=== PATIENT | female | born 1950 | race Caucasian/White ===

== ENCOUNTER 2017-02-06 19:38 | Inpatient (IN) | payer OTHER, MEDICARE ==
[2017-02-06 19:42] VITALS: BMI 25.9
--- NOTE | 2017-02-06 19:46 | PDOC ---
History of Present Illness - History of Present Illness Initial Comments: 02/06/17 19:59 The patient is a 66 year old female, who presents to the emergency department with nausea and vomiting since last night. Patient states that she has been vomiting since night, every 20 minutes. She states she is is unable to tolerate any foods or liquids. Every time she would eat or drink, she would throw it up. She describes her vomit as bilious. She was. however, able to have a bowel movement yesterday and today. She also complains of associated headache as well as being dehydrated. She was seen at [facility] around 1 year ago for a small bowel obstruction. She denies recent fevers, chills, or dizziness. She denies recent diarrhea or constipation. She denies recent dysuria, frequency, urgency or hematuria. She denies recent chest pain or shortness of breath. PAST MEDICAL HISTORY: SVT, cardiac ablation, type II diabetes, PAST SURGICAL HISTORY: splenectomy FAMILY HISTORY: no pertinent history SOCIAL HISTORY: former smoker MEDICATIONS: reviewed ALLERGIES: As per nursing notes ROS General: No fevers or chills, no weakness, no weight loss HEENT: No change in vision. No sore throat, No ear pain CardioVascular: No chest pain or shortness of breath Respiratory:No cough, or wheezing. Gastrointestinal:+ nausea +vomiting ,no diarrhea or constipation, No rectal bleeding Genitourinary: No dysuria, hematuria, or frequency Musculoskeletal: No joint or muscle pain or swelling Neurologic: +headache, no vertigo, dizziness or loss of consciousness Psychiatric: no depression Skin: No rashes or easy bruising Endocrine: no increased thirst or abnormal weight change Allergic: no skin or latex allergy All other systems reviewed and normal PE General: Well-nourished well-developed individual, no acute distress HEENT: Throat: Normal, tonsils normal, no erythema or exudate. Mucous membranes dry. Neck: Supple, no meningeal signs, no lymphadenopathy Eyes::Pupils equal reactive and round, extraocular motion intact Chest: Nontender to palpation Cardiac: S1-S2 normal, regular rate and rhythm, no murmurs rubs or gallops Respiratory: Lungs clear to auscultation bilateral Abdomen: Slightly distended, soft, nontender to palpation, hyper-bowel sounds present but high-pitched sounds noted in upper abdomen. Extremities: Warm, dry, no cyanosis, clubbing, or edema Skin: No rashes Neuro: Alert and oriented x3, nonfocal exam, grossly intact, normal gait Psych: Normal mood and affect <Uyen Soto - Last Filed: 02/06/17 20:46> - General History Source: Patient Exam Limitations: No Limitations - History of Present Illness Initial Comments: 02/06/17 22:09 A portion of this note was documented by scribe services under my direction. I have reviewed the details of the note, within reason, and agree with the documentation. The case summary and management plan written by me. Assessment and plan: This is a 66-year-old female who comes in complaining of nausea vomiting and abdominal pain that is intermittent and crampy in nature. Patient has history of SBO in the past. Patient had a workup which revealed a high-grade partial SBO. In addition to that patient was very dehydrated from her vomiting so was given 2 L of IV normal saline. Patient will be admitted to the hospitalist service for SBO. <Mei Fajardo I - Last Filed: 02/06/17 22:13> - General Chief Complaint: Nausea/Vomiting Stated Complaint: ABD PAIN/N/V Time Seen by Provider: 02/06/17 19:45 Past History <Uyen Soto - Last Filed: 02/06/17 20:46> - Past Medical History Anemia: No Asthma: Yes (COLD INDUCED ONLY DUE TO BETA BLOCKERS) Cancer: Yes (THYROID) Cardiac Disorders: Yes (SVT, CARDIAC ABLATION) CVA: No COPD: No CHF: Yes (S/P PNEUMONIA- 2000) Diabetes: Yes (TYPE II) GI Disorders: Yes (OBSTRUCTION) Disorders: No HTN: Yes Hypercholesterolemia: Yes (HIGH TRIGLYCERIDES) Liver Disease: No Seizures: No Thyroid Disease: Yes (THYROIDECTOMY) - Surgical History Abdominal Surgery: Yes (SPLEENECTOMY) Appendectomy: No Cardiac Surgery: Yes (ABLATION) Cholecystectomy: No Lung Surgery: No Neurologic Surgery: No Orthopedic Surgery: Yes (RIGHT TOTAL KNEE REPLACEMENT-2011) - Suicide/Smoking/Psychosocial Hx Smoking Status: Yes Smoking History: Never smoked Have you smoked in the past 12 months: No Number of Cigarettes Smoked Daily: 0 If you are a former smoker, when did you quit?: 2000 Hx Alcohol Use: No Drug/Substance Use Hx: No Substance Use Type: None <Mei Fajardo I - Last Filed: 02/06/17 22:13> - Past Medical History Allergies/Adverse Reactions: Allergies Allergy/AdvReac Type Severity Reaction Status Date / Time aspirin Allergy Intermediate Swelling Unverified 09/19/15 07:45 azithromycin [From Zithromax] Allergy Intermediate Hives Verified 09/19/15 07:45 Cephalosporins Allergy Intermediate Hives Verified 09/19/15 07:45 ciprofloxacin HCl Allergy Intermediate tachycardia Verified 09/19/15 07:45 [From Cipro] clarithromycin [From Biaxin] Allergy Intermediate Hives Verified 09/19/15 07:45 NSAIDS (Non-Steroidal Allergy Intermediate Swelling Verified 09/19/15 07:45 Anti-Inflamma Penicillins Allergy Intermediate Hives Verified 09/19/15 07:45 amoxicillin Allergy Verified 02/06/17 19:40 cephalexin monohydrate Allergy Verified 02/06/17 19:40 [From Keflex] ciprofloxacin [From Cipro] Allergy tachycardia Verified 09/19/15 07:45 cyclobenzaprine HCl Allergy Verified 09/19/15 07:45 [From Flexeril] diphenhydramine HCl Allergy Verified 09/19/15 07:45 [From Benadryl] rosuvastatin calcium Allergy Itching Unverified 09/17/16 11:03 [From Crestor] including throat. Nekiqwz-Cxl-Ylv Reductase Allergy Verified 02/06/17 19:40 Inhibitor Sulfa (Sulfonamide Allergy Verified 09/19/15 07:45 Antibiotics) [Sulfa(Sulfonamide Antibiotics)] fenofibrate AdvReac muscle Unverified 09/17/16 10:29 aches metformin HCl AdvReac abdominal Unverified 09/17/16 10:28 [From Kombiglyze XR] pain saxagliptin HCl AdvReac abdominal Unverified 09/17/16 10:28 [From Kombiglyze XR] pain Home Medications: Ambulatory Orders Levothyroxine [Synthroid -] 25 mcg PO DAILY 01/08/15 Glimepiride [Amaryl -] 2 mg PO BID 09/13/15 Review of Systems - Review of Systems Comments:: 02/06/17 20:00 see HPI <Uyen Soto - Last Filed: 02/06/17 20:46> *Physical Exam - Vital Signs Last Vital Signs Temp Pulse Resp BP Pulse Ox 98.1 F 110 H 16 139/100 96 02/06/17 19:40 02/06/17 19:40 02/06/17 19:40 02/06/17 19:40 02/06/17 19:40 - Physical Exam Comments: 02/06/17 20:00 see HPI <Uyen Soto - Last Filed: 02/06/17 20:46> - Vital Signs Last Vital Signs Temp Pulse Resp BP Pulse Ox 98.1 F 110 H 16 139/100 96 02/06/17 19:40 02/06/17 19:40 02/06/17 19:40 02/06/17 19:40 02/06/17 19:40 <Mei Fajardo I - Last Filed: 02/06/17 22:13> Heart Score/ECG Review - ECG Intrepretation Comment:: 02/06/17 20:[address] & T wave abnormality, consider anterior ischemia Prolonged QT Abnormal ECG Vent. rate 87 bpm No significant change when compared to January 08, 2015. <Uyen Soto - Last Filed: 02/06/17 20:46> ED Treatment Course - LABORATORY CBC & Chemistry Diagram: 02/06/17 19:50 02/06/17 19:50 <Uyen Soto - Last Filed: 02/06/17 20:46> - LABORATORY CBC & Chemistry Diagram: 02/06/17 19:50 02/06/17 19:50 <Mei Fajardo I - Last Filed: 02/06/17 22:13> *DC/Admit/Observation/Transfer - Attestations Scribe Attestion: 02/06/17 19:59 Documentation prepared by Uyen Soto, acting as medical coder for Mei Fajardo MD. <Uyen Soto - Last Filed: 02/06/17 20:46> - Discharge Dispostion Admit: Yes <Mei Fajardo I - Last Filed: 02/06/17 22:13> Diagnosis at time of Disposition: Small bowel obstruction, Dehydration - Discharge Dispostion Condition at time of disposition: Stable - Referrals Referrals: Gasper Vernon MD [Primary Care Provider] - - Patient Instructions - Post Discharge Activity
[2017-02-06] MEDS ORDERED: morphine CARPU-JECT 4 MG/1 ML DISP.SYRIN IVPUSH ONE (19:51)
[2017-02-06] MEDS ORDERED: ONDANSETRON 4 MG/2 ML VIAL IVPB ONE (19:51)
[2017-02-06] MEDS ORDERED: SODIUM CHLORIDE 1,000 ML IV ONE ×2 (19:51→21:10)
[2017-02-06] MEDS ORDERED: morphine SULFATE 4 MG/ML VIAL ONE (19:57)
[2017-02-06] MEDS ORDERED: ONDANSETRON 4 MG/2 ML VIAL ONE (19:57)
[2017-02-06 20:14] LABS: MCH 29.8 pg (25.7-33.7); MCHC 33.8 g/dl (32.0-36.0); MEAN PLT VOLUME 9.1 fl (7.5-11.1); PLATELET COUNT 511 K/MM3 (134-434); WHITE BLOOD COUNT 20.9 K/mm3 (4.0-10.8)
[2017-02-06 20:23] LABS: CPK 47 IU/L (26-192)
[2017-02-06 20:24] LABS: ALBUMIN 4.7 g/dl (3.5-5.0); ALK PHOS 94 U/L (32-92); ANION GAP 13 (8-16); BILIRUBIN,TOTAL 1.8 mg/dl (0.2-1.0); CALCIUM 9.8 mg/dl (8.4-10.2); CO2 26 mmol/L (22-28); CREATININE 0.6 mg/dl (0.6-1.3); GLUCOSE,RANDOM 217 mg/dl (74-106); SGOT/AST 22 U/L (10-42); SGPT/ALT 19 U/L (10-40); TOT PROT 8.1 g/dl (6.4-8.3)
[2017-02-06 20:32] LABS: TROPONIN I (DFP) < 0.03 ng/ml (0.03-0.50)
[2017-02-06 20:40] LABS: PLATELET ESTIMATE INCREASED
[2017-02-06 20:41] LABS: PLATELET COMMENTS MODERATE LARGE PLATE
[2017-02-06 21:03] LABS: PH,URINE 5.5 (4.5-8); URINE APPEARANCE Clear; URINE BILIRUBIN 1+ (NEGATIVE); URINE GLUCOSE (UA) Negative (NEGATIVE); URINE KETONE 2+ (NEGATIVE); URINE LEUK ESTERASE Negative (NEGATIVE); URINE NITRITE Negative (NEGATIVE); URINE UROBILINOGEN 0.2 (0.2-1.0)
[2017-02-06 21:06] LABS: URINE BLOOD 2+ (NEGATIVE); URINE COLOR YELLOW; URINE PROTEIN 1+ (NEGATIVE)
[2017-02-06 22:14] LABS: URINE WBC 0-2 (0-5)
[2017-02-06 22:39] LABS: BASOPHIL 3.6 % (0-2.0); EOSINOPHIL 0.3 % (0-4.5); MCH 29.8 pg (25.7-33.7); MCHC 33.6 g/dl (32.0-36.0); MEAN CELL VOLUME 88.7 fl (80-96); MEAN PLT VOLUME 8.6 fl (7.5-11.1); PLATELET COUNT 447 K/MM3 (134-434); RDW 12.6 % (11.6-15.6); WHITE BLOOD COUNT 18.5 K/mm3 (4.0-10.8)
--- NOTE | 2017-02-06 23:28 | HP ---
CHIEF COMPLAINT: Abdominal Pain, Nausea and Vomiting PCP: Dr. Vernon HISTORY OF PRESENT ILLNESS: This is a 66 y/o woman with a past medical history of SBO, SVT(Ablation), Type II DM, HLD. Who presents to the ED with nausea, vomiting, abdominal pain x last night. Patient reports having bilious vomiting every 20 min. Patient reports not being able to tolerate any liquids or solids. Patient denies fever, cough, SOB, dizziness, CP, diarrhea, melena, hematochezia, constipation, dysuria ER course was notable for: (1) CTAP- Partial SBO (2) WBC 20.9 (3) Glucose 217 Recent Travel: None PAST MEDICAL HISTORY: SBO SVT Type II DM HLD PAST SURGICAL HISTORY: Splenectomy Thyroidectomy Cardiac Ablation Social History: Smoking: Former Alcohol: None Drugs: None Lives with spouse Family History: Mother: Mi, age 54 Allergies aspirin Allergy (Intermediate, Unverified 09/19/15 07:45) Swelling azithromycin [From Zithromax] Allergy (Intermediate, Verified 09/19/15 07:45) Hives Cephalosporins Allergy (Intermediate, Verified 09/19/15 07:45) Hives ciprofloxacin HCl [From Cipro] Allergy (Intermediate, Verified 09/19/15 07:45) tachycardia clarithromycin [From Biaxin] Allergy (Intermediate, Verified 09/19/15 07:45) Hives NSAIDS (Non-Steroidal Anti-Inflamma Allergy (Intermediate, Verified 09/19/15 07: 45) Swelling Penicillins Allergy (Intermediate, Verified 09/19/15 07:45) Hives amoxicillin Allergy (Verified 02/06/17 19:40) cephalexin monohydrate [From Keflex] Allergy (Verified 02/06/17 19:40) ciprofloxacin [From Cipro] Allergy (Verified 09/19/15 07:45) tachycardia cyclobenzaprine HCl [From Flexeril] Allergy (Verified 09/19/15 07:45) diphenhydramine HCl [From Benadryl] Allergy (Verified 09/19/15 07:45) rosuvastatin calcium [From Crestor] Allergy (Unverified 09/17/16 11:03) Itching including throat. Dtzwppg-Evg-Psz Reductase Inhibitor Allergy (Verified 02/06/17 19:40) Sulfa (Sulfonamide Antibiotics) [Sulfa(Sulfonamide Antibiotics)] Allergy ( Verified 09/19/15 07:45) fenofibrate Adverse Reaction (Unverified 09/17/16 10:29) muscle aches metformin HCl [From Kombiglyze XR] Adverse Reaction (Unverified 09/17/16 10:28) abdominal pain saxagliptin HCl [From Kombiglyze XR] Adverse Reaction (Unverified 09/17/16 10:28 ) abdominal pain HOME MEDICATIONS: Home Medications Medication Instructions Recorded Levothyroxine [Synthroid -] 25 mcg PO DAILY 01/08/15 Glimepiride [Amaryl -] 2 mg PO BID 09/13/15 REVIEW OF SYSTEMS CONSTITUTIONAL: generalized weakness, malaise Absent: fever, chills, diaphoresis, loss of appetite, weight change HEENT: Absent: rhinorrhea, nasal congestion, throat pain, throat swelling, difficulty swallowing, mouth swelling, ear pain, eye pain, visual changes CARDIOVASCULAR: Absent: chest pain, syncope, palpitations, irregular heart rate, lightheadedness , peripheral edema RESPIRATORY: Absent: cough, shortness of breath, dyspnea with exertion, orthopnea, wheezing, stridor, hemoptysis GASTROINTESTINAL: abdominal pain ,nausea, vomiting, Absent: abdominal distension, diarrhea, constipation, melena, hematochezia GENITOURINARY: Absent: dysuria, frequency, urgency, hesitancy, hematuria, flank pain, genital pain MUSCULOSKELETAL: Absent: myalgia, arthralgia, joint swelling, back pain, neck pain SKIN: Absent: rash, itching, pallor HEMATOLOGIC/IMMUNOLOGIC: Absent: easy bleeding, easy bruising, lymphadenopathy, frequent infections ENDOCRINE: Absent: unexplained weight gain, unexplained weight loss, heat intolerance, cold intolerance NEUROLOGIC: Absent: headache, focal weakness or paresthesias, dizziness, unsteady gait, seizure, mental status changes, bladder or bowel incontinence PSYCHIATRIC: Absent: anxiety, depression, suicidal or homicidal ideation, hallucinations. PHYSICAL EXAMINATION Vital Signs - 24 hr 02/06/17 02/06/17 19:40 22:20 Temperature 98.1 F Pulse Rate 110 H Pulse Rate [ 93 H Radial] Respiratory 16 16 Rate Blood Pressure 139/100 Blood Pressure 124/73 [Arm] O2 Sat by Pulse 96 96 Oximetry (%) GENERAL: Awake, alert, and fully oriented, in no acute distress. HEAD: Normal with no signs of trauma. EYES: Pupils equal, round and reactive to light, extraocular movements intact, sclera anicteric, conjunctiva clear. No lid lag. EARS, NOSE, THROAT: Ears normal, nares patent, oropharynx clear without exudates. Dry mucous membranes. NECK: Normal range of motion, supple without lymphadenopathy, JVD, or masses. LUNGS: Breath sounds equal, clear to auscultation bilaterally. No wheezes, and no crackles. No accessory muscle use. HEART: Regular rate and rhythm, normal S1 and S2 without murmur, rub or gallop. ABDOMEN: Soft, not distended, no guarding, no rebound, no masses. No hepatomegaly or splenomegaly. tenderness to epigastrium, RUQ, hypoactive bowel sounds MUSCULOSKELETAL: Normal range of motion at all joints. No bony deformities or tenderness. No CVA tenderness. UPPER EXTREMITIES: 2+ pulses, warm, well-perfused. No cyanosis. No clubbing. No peripheral edema. LOWER EXTREMITIES: 2+ pulses, warm, well-perfused. No calf tenderness. No peripheral edema. NEUROLOGICAL: Cranial nerves II-XII intact. Normal speech. Normal gait. PSYCHIATRIC: Cooperative. Good eye contact. Appropriate mood and affect. SKIN: Warm, dry, normal turgor, no rashes or lesions noted, normal capillary refill. Laboratory Results - last 24 hr 02/06/17 02/06/17 02/06/17 19:50 19:50 19:50 WBC 20.9 H D RBC 5.77 H Hgb 17.2 H D Hct 50.8 H MCV 88.0 MCH 29.8 MCHC 33.8 RDW 13.0 Plt Count 511 H MPV 9.1 Neutrophils % No Result Required. Neutrophils % (Manual) 80.0 Band Neutrophils % 7.0 Lymphocytes % No Result Required. Lymphocytes % (Manual) 8.0 Monocytes % Monocytes % (Manual) 5 Eosinophils % Basophils % Platelet Estimate Increased Platelet Comment Moderate large plate Sodium 133 L Potassium 4.5 Chloride 94 L Carbon Dioxide 26 Anion Gap 13 BUN 20 H D Creatinine 0.6 D Creat Clearance w eGFR > 60 Random Glucose 217 H D Lactic Acid Calcium 9.8 Total Bilirubin 1.8 H D AST 22 ALT 19 Alkaline Phosphatase 94 H Creatine Kinase 47 Troponin I < 0.03 L Total Protein 8.1 Albumin 4.7 Lipase 39 Urine Color Urine Appearance Urine pH Ur Specific [place] Urine Protein Urine Glucose (UA) Urine Ketones Urine Blood Urine Nitrite Urine Bilirubin Urine Urobilinogen Ur Leukocyte Esterase Urine RBC Urine WBC 02/06/17 02/06/17 02/06/17 21:00 22:25 22:25 WBC 18.5 H RBC 4.77 Hgb 14.2 D Hct 42.3 D MCV 88.7 MCH 29.8 MCHC 33.6 RDW 12.6 Plt Count 447 H MPV 8.6 Neutrophils % 79.0 D Neutrophils % (Manual) Band Neutrophils % Lymphocytes % 11.5 D Lymphocytes % (Manual) Monocytes % 5.6 Monocytes % (Manual) Eosinophils % 0.3 D Basophils % 3.6 H Platelet Estimate Platelet Comment Sodium Potassium Chloride Carbon Dioxide Anion Gap BUN Creatinine Creat Clearance w eGFR Random Glucose Lactic Acid 1.4 Calcium Total Bilirubin AST ALT Alkaline Phosphatase Creatine Kinase Troponin I Total Protein Albumin Lipase Urine Color Yellow Urine Appearance Clear Urine pH 5.5 D Ur Specific [place] 1.025 Urine Protein 1+ H Urine Glucose (UA) Negative Urine Ketones 2+ H Urine Blood 2+ H Urine Nitrite Negative Urine Bilirubin 1+ H Urine Urobilinogen 0.2 Ur Leukocyte Esterase Negative Urine RBC 2-5 Urine WBC 0-2 ASSESSMENT/PLAN: This is a 66 y/o woman with a PMHx of: SBO, SVT (Ablation), Type II DM, HLD, Thyroid Ca (Thyroidectomy). Admitted to M/S, Partial SBO, Dehydration for further evaluation of their emergent condition. Plan: 1. Small Bowel Obstruction - CTAP- partial SBO - NS bolus, Zofran given in ED - Appreciate Surgical Consult - Continue IVF - Consider NGT if patient resumes vomiting or abdomen is distended - Monitor CBC, BMP - Morphine Sulfate IV prn - Use antiemetic cautiously secondary to EKG- prolonged QT 2. Dehydration - See Above - Mg, Phos in am 3. Leukocytosis - Patient is afebrile, does not appear septic - Likely secondary to stress vs inflammatory response - Monitor CBC 4. Diabetes Mellitus - Not controlled - BGMs - ISS - Monitor renal function - HgbA1C in am 5. Hypothyroidism - s/p thyroidectomy - TSH in am - Continue Levothyroxine 6. SVT - Well controlled - s/p Ablation - Will hold po meds, secondary to SBO- use IV as needed - EKG- reviewed 7. Prolonged QT -Avoid medications that can cause prolonged QT 8. FEN - NS@75ml/hr - Replete lytes prn - NPO 9. DVT Prophylaxis - OOB - SCDs - Heparin SQ Dispo: Requires Inpatient Care Problem List - Problem (1) Dehydration Code(s): E86.0 - DEHYDRATION (2) Small bowel obstruction Code(s): K56.69 - OTHER INTESTINAL OBSTRUCTION * DO NOT USE * (3) Insulin dependent diabetes mellitus Code(s): E11.9 - TYPE 2 DIABETES MELLITUS WITHOUT COMPLICATIONS; Z79.4 - EXCAVATING SUPERVISOR (CURRENT) USE OF INSULIN (4) Non-ischemic cardiomyopathy Code(s): I42.9 - CARDIOMYOPATHY, UNSPECIFIED (5) Thyroid cancer Code(s): C73 - MALIGNANT NEOPLASM OF THYROID GLAND Visit type - Emergency Visit Emergency Visit: Yes ED Registration Date: 02/06/17 Care time: The patient presented to the Emergency Department on the above date and was hospitalized for further evaluation of their emergent condition. - New Patient This patient is new to me today: Yes Date on this admission: 02/06/17 - Critical Care Critical Care patient: No
[2017-02-07] MEDS: SODIUM CHLORIDE 1,000 ML IV SCH ×2 (00:36→23:25)
[2017-02-07] MEDS ORDERED: LEVOTHYROXINE NA 25 MCG TABLET (FP) PO SCH (01:15)
[2017-02-07] MEDS: morphine SULFATE 4 MG/ML VIAL IVPUSH PRN ×2 (01:57→17:44)
[2017-02-07] MEDS: LEVOTHYROXINE NA 25 MCG TABLET (FP) PO SCH (06:33)
[2017-02-07 07:36] LABS: MCH 30.4 pg (25.7-33.7); MCHC 33.7 g/dl (32.0-36.0); MEAN CELL VOLUME 90.1 fl (80-96); MEAN PLT VOLUME 8.7 fl (7.5-11.1); PLATELET COUNT 417 K/MM3 (134-434); WHITE BLOOD COUNT 15.9 K/mm3 (4.0-10.8)
[2017-02-07 08:17] LABS: AMYLASE 72 U/L (25-125); ANION GAP 8 (8-16); CALCIUM 8.6 mg/dl (8.4-10.2); CO2 26 mmol/L (22-28); CREATININE 0.4 mg/dl (0.6-1.3); GLUCOSE,RANDOM 135 mg/dl (74-106); MAGNESIUM 1.9 mg/dL (1.8-2.4); PHOSPHOROUS 3.2 mg/dl (2.5-4.6)
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
--- NOTE | 2017-02-07 09:41 | PN ---
Physical Exam: SUBJECTIVE: Patient seen and examined. No nausea/vomiting. Some abdominal pain. No flatus. Feels "a lot of gurgling." OBJECTIVE: Vital Signs Period Temp Pulse Resp BP Sys/Marshall Pulse Ox Last 24 Hr 98.0 F-98.3 F 78-110 16-20 109-139/57-100 96-96 GENERAL: The patient is awake, alert, and fully oriented, in no acute distress. HEAD: Normal with no signs of trauma. EYES: PERRL, extraocular movements intact, sclera anicteric, conjunctiva clear. No ptosis. ENT: Ears normal, nares patent, oropharynx clear without exudates, moist mucous membranes. NECK: Trachea midline, full range of motion, supple. LUNGS: Breath sounds equal, clear to auscultation bilaterally, no wheezes, no crackles, no accessory muscle use. HEART: Regular rate and rhythm, S1, S2 without murmur, rub or gallop. ABDOMEN: Soft, no focal tenderness, bowel sounds hyperactive upper quadrants, hypoactive RLQ. EXTREMITIES: 2+ pulses, warm, well-perfused, no edema. NEUROLOGICAL: Cranial nerves II through XII grossly intact. Normal speech, gait not observed. PSYCH: Normal mood, normal affect. SKIN: Warm, dry, normal turgor, no rashes or lesions noted Laboratory Results - last 24 hr 02/06/17 02/06/17 02/06/17 19:50 19:50 19:50 WBC 20.9 H D RBC 5.77 H Hgb 17.2 H D Hct 50.8 H MCV 88.0 MCH 29.8 MCHC 33.8 RDW 13.0 Plt Count 511 H MPV 9.1 Neutrophils % No Result Required. Neutrophils % (Manual) 80.0 Band Neutrophils % 7.0 Lymphocytes % No Result Required. Lymphocytes % (Manual) 8.0 Monocytes % Monocytes % (Manual) 5 Eosinophils % Basophils % Platelet Estimate Increased Platelet Comment Moderate large plate Sodium 133 L Potassium 4.5 Chloride 94 L Carbon Dioxide 26 Anion Gap 13 BUN 20 H D Creatinine 0.6 D Creat Clearance w eGFR > 60 POC Glucometer Random Glucose 217 H D Lactic Acid Calcium 9.8 Phosphorus Magnesium Total Bilirubin 1.8 H D AST 22 ALT 19 Alkaline Phosphatase 94 H Creatine Kinase 47 Troponin I < 0.03 L Total Protein 8.1 Albumin 4.7 Total Amylase Lipase 39 Urine Color Urine Appearance Urine pH Ur Specific [place] Urine Protein Urine Glucose (UA) Urine Ketones Urine Blood Urine Nitrite Urine Bilirubin Urine Urobilinogen Ur Leukocyte Esterase Urine RBC Urine WBC 02/06/17 02/06/17 02/06/17 21:00 22:25 22:25 WBC 18.5 H RBC 4.77 Hgb 14.2 D Hct 42.3 D MCV 88.7 MCH 29.8 MCHC 33.6 RDW 12.6 Plt Count 447 H MPV 8.6 Neutrophils % 79.0 D Neutrophils % (Manual) Band Neutrophils % Lymphocytes % 11.5 D Lymphocytes % (Manual) Monocytes % 5.6 Monocytes % (Manual) Eosinophils % 0.3 D Basophils % 3.6 H Platelet Estimate Platelet Comment Sodium Potassium Chloride Carbon Dioxide Anion Gap BUN Creatinine Creat Clearance w eGFR POC Glucometer Random Glucose Lactic Acid 1.4 Calcium Phosphorus Magnesium Total Bilirubin AST ALT Alkaline Phosphatase Creatine Kinase Troponin I Total Protein Albumin Total Amylase Lipase Urine Color Yellow Urine Appearance Clear Urine pH 5.5 D Ur Specific [place] 1.025 Urine Protein 1+ H Urine Glucose (UA) Negative Urine Ketones 2+ H Urine Blood 2+ H Urine Nitrite Negative Urine Bilirubin 1+ H Urine Urobilinogen 0.2 Ur Leukocyte Esterase Negative Urine RBC 2-5 Urine WBC 0-2 02/07/17 02/07/17 02/07/17 06:42 07:28 07:28 WBC 15.9 H RBC 4.76 Hgb 14.5 Hct 42.9 MCV 90.1 MCH 30.4 MCHC 33.7 RDW 13.0 Plt Count 417 MPV 8.7 Neutrophils % No Result Required. Neutrophils % (Manual) Band Neutrophils % Lymphocytes % No Result Required. Lymphocytes % (Manual) Monocytes % Monocytes % (Manual) Eosinophils % Basophils % Platelet Estimate Platelet Comment Sodium 139 Potassium 3.9 Chloride 105 D Carbon Dioxide 26 Anion Gap 8 BUN 17 Creatinine 0.4 L D Creat Clearance w eGFR POC Glucometer 107 Random Glucose 135 H D Lactic Acid Calcium 8.6 Phosphorus 3.2 Magnesium 1.9 Total Bilirubin AST ALT Alkaline Phosphatase Creatine Kinase Troponin I Total Protein Albumin Total Amylase 72 Lipase 46 Urine Color Urine Appearance Urine pH Ur Specific [place] Urine Protein Urine Glucose (UA) Urine Ketones Urine Blood Urine Nitrite Urine Bilirubin Urine Urobilinogen Ur Leukocyte Esterase Urine RBC Urine WBC Active Medications Generic Name Dose Route Start Last Admin Trade Name Freq PRN Reason Stop Dose Admin Sodium Chloride 1,000 mls @ 75 mls/hr 02/06/17 23:45 02/07/17 00:36 Normal Saline - IV 75 mls/hr ASDIR CRISTAL Administration Levothyroxine Sodium 25 mcg 02/07/17 07:00 02/07/17 06:33 Synthroid - PO 25 mcg DAILY@0700 CRISTAL Administration Morphine Sulfate 4 mg 02/07/17 01:47 02/07/17 01:57 Morphine Sulfate IVPUSH 4 mg Q6H PRN Administration PAIN ASSESSMENT/PLAN: This is a 66 y/o woman with a history of splenectomy s/p trauma, multiple SBO, SVT (Ablation), Type II DM, HLD, and thyroid ca s/p thyroidectomy admitted with high-grade partial SBO and dehydration. Plan: 1. Small Bowel Obstruction - CTAP- partial SBO - NS bolus, Zofran given in ED - Appreciate Surgical Consult - Continue IVF - Consider NGT if patient resumes vomiting or abdomen is distended - Monitor CBC, BMP - Morphine Sulfate IV prn - Use antiemetic cautiously secondary to EKG- prolonged QT 2. Dehydration - See Above - Mg, Phos in am 3. Leukocytosis - Trending down - Likely secondary to stress/SBO; no infectious symptoms 4. Diabetes Mellitus - ISS -FS q6h 5. Hypothyroidism - S/p thyroidectomy - TSH in am - Continue Levothyroxine 6. SVT - SR currently - S/p Ablation 7. Prolonged QT -Avoid medications that can cause prolonged QT 8. FEN - NS@75ml/hr - Replete lytes prn - NPO 9. DVT Prophylaxis - OOB - [facility] Visit type - Emergency Visit Emergency Visit: Yes ED Registration Date: 02/06/17 Care time: The patient presented to the Emergency Department on the above date and was hospitalized for further evaluation of their emergent condition. - New Patient This patient is new to me today: Yes Date on this admission: 02/08/17 - Critical Care Critical Care patient: No - Discharge Referral Referred to [facility] Med P.C.: No
[2017-02-07 11:17] LABS: THYROID STIMULATING HORMONE 1.42 uIU/ml (0.358-3.74)
[2017-02-07 16:04] LABS: PLATELET ESTIMATE ADEQUATE
[2017-02-07 16:24] LABS: PLATELET COMMENTS NORMAL
[2017-02-08] MEDS: LEVOTHYROXINE NA 25 MCG TABLET (FP) PO SCH (06:25)
[2017-02-08 08:53] LABS: BASOPHIL 0.1 % (0-2.0); EOSINOPHIL 2.5 % (0-4.5); MCH 30.2 pg (25.7-33.7); MCHC 33.4 g/dl (32.0-36.0); MEAN CELL VOLUME 90.5 fl (80-96); MEAN PLT VOLUME 9.6 fl (7.5-11.1); NEUTROPHILS 75.2 % (42.8-82.8); PLATELET COUNT 158 K/MM3 (134-434); RDW 15.5 % (11.6-15.6); WHITE BLOOD COUNT 6.5 K/mm3 (4.0-10.8)
[2017-02-08 09:27] LABS: ANION GAP 9 (8-16); CALCIUM 8.4 mg/dl (8.4-10.2); CO2 25 mmol/L (22-28); GLUCOSE,RANDOM 87 mg/dl (74-106); MAGNESIUM 1.8 mg/dL (1.8-2.4)
[2017-02-08 09:29] LABS: CREATININE < 0.4 mg/dl (0.6-1.3)
[2017-02-08 10:12] LABS: EOSINOPHIL 1.3 % (0-4.5); MCH 29.8 pg (25.7-33.7); MCHC 32.9 g/dl (32.0-36.0); MEAN CELL VOLUME 90.5 fl (80-96); MEAN PLT VOLUME 8.8 fl (7.5-11.1); NEUTROPHILS 65.1 % (42.8-82.8); PLATELET COUNT 389 K/MM3 (134-434); RDW 13.4 % (11.6-15.6); WHITE BLOOD COUNT 14.1 K/mm3 (4.0-10.8)
--- NOTE | 2017-02-08 10:28 | EKG ---
Test Reason : Blood Pressure : / mmHG Vent. Rate : 087 BPM Atrial Rate : 087 BPM P-R Int : 132 ms QRS Dur : 090 ms QT Int : 392 ms P-R-T Axes : 055 -01 043 degrees QTc Int : 471 ms NORMAL SINUS RHYTHM PROLONGED QT RCVD NO PREVIOUS ECGS AVAILABLE Confirmed by MD ODALIS, DICKSON ([id number]) on 02/08/2017 10:28:19 AM Referred By: MD BARRETO Confirmed By:DICKSON JACOBO MD
--- NOTE | 2017-02-08 11:30 | PN ---
Physical Exam: SUBJECTIVE: Patient seen and examined. Abdominal pain has lessened. She passed gas. No nausea or vomiting. OBJECTIVE: Suspect lab error with morning CBC; repeated and H/H within normal limits. Vital Signs Period Temp Pulse Resp BP Sys/Marshall Pulse Ox Last 24 Hr 98.5 F-99.2 F 81-103 18-19 123-138/61-74 94-97 GENERAL: The patient is awake, alert, and fully oriented, in no acute distress. HEAD: Normal with no signs of trauma. EYES: PERRL, extraocular movements intact, sclera anicteric, conjunctiva clear. No ptosis. ENT: Ears normal, nares patent, oropharynx clear without exudates, moist mucous membranes. NECK: Trachea midline, full range of motion, supple. LUNGS: Breath sounds equal, clear to auscultation bilaterally, no wheezes, no crackles, no accessory muscle use. HEART: Regular rate and rhythm, S1, S2 without murmur, rub or gallop. ABDOMEN: Soft, nontender, nondistended, normoactive bowel sounds all 4 quadrants , no guarding, no rebound, no hepatosplenomegaly, no masses. EXTREMITIES: 2+ pulses, warm, well-perfused, no edema. NEUROLOGICAL: Cranial nerves II through XII grossly intact. Normal speech, gait not observed. PSYCH: Normal mood, normal affect. SKIN: Warm, dry, normal turgor, no rashes or lesions noted Laboratory Results - last 24 hr 02/07/17 02/08/17 02/08/17 07:28 06:00 06:00 WBC 6.5 D RBC 3.17 L D Hgb 9.6 L D Hct 28.7 L D MCV 90.5 MCH 30.2 MCHC 33.4 RDW 15.5 D Plt Count 158 D MPV 9.6 D Neutrophils % 68.0 75.2 Neutrophils % (Manual) 68.0 Band Neutrophils % 0.0 Lymphocytes % 27.0 D 15.7 D Monocytes % 4.0 6.5 Eosinophils % 1.0 D 2.5 D Basophils % 0.1 Platelet Estimate Adequate Platelet Comment Normal Sodium 138 Potassium 3.9 Chloride 104 Carbon Dioxide 25 Anion Gap 9 BUN 11 D Creatinine < 0.4 L Random Glucose 87 D Calcium 8.4 Magnesium 1.8 02/08/17 10:09 WBC 14.1 H D RBC 4.38 D Hgb 13.1 D Hct 39.7 D MCV 90.5 MCH 29.8 MCHC 32.9 RDW 13.4 D Plt Count 389 D MPV 8.8 Neutrophils % 65.1 Neutrophils % (Manual) Band Neutrophils % Lymphocytes % 21.4 D Monocytes % 9.2 Eosinophils % 1.3 Basophils % 3.0 H D Platelet Estimate Platelet Comment Sodium Potassium Chloride Carbon Dioxide Anion Gap BUN Creatinine Random Glucose Calcium Magnesium Active Medications Generic Name Dose Route Start Last Admin Trade Name Preetq PRN Reason Stop Dose Admin Sodium Chloride 1,000 mls @ 75 mls/hr 02/06/17 23:45 02/07/17 23:25 Normal Saline - IV 75 mls/hr ASDIR CRISTAL Administration Levothyroxine Sodium 25 mcg 02/07/17 07:00 02/08/17 06:25 Synthroid - PO 25 mcg DAILY@0700 CRISTAL Administration Morphine Sulfate 4 mg 02/07/17 01:47 02/07/17 17:44 Morphine Sulfate IVPUSH 4 mg Q6H PRN Administration PAIN ASSESSMENT/PLAN: This is a 66 y/o woman with a history of splenectomy s/p trauma , multiple SBO, SVT (Ablation), Type II DM, HLD, and thyroid ca s/p thyroidectomy admitted with high-grade partial SBO and dehydration. Plan: 1. Small Bowel Obstruction -Improving; passing flatus, bowel sounds heard all 4 quadrants -Repeat AXR today -Surgery following -Strict NPO 2. Dehydration -Continue IV hydration 3. Leukocytosis - Trending down - Likely secondary to stress/SBO; no infectious symptoms 4. Diabetes Mellitus -ISS -FS q6h 5. Hypothyroidism - S/p thyroidectomy - TSH in am - Continue Levothyroxine 6. SVT - SR currently - S/p Ablation 7. Prolonged QT -Avoid medications that can cause prolonged QT 8. FEN -NS@75ml/hr -Replete lytes prn -NPO 9. DVT Prophylaxis - OOB - Sqh
[2017-02-08] MEDS ORDERED: FAMOTIDINE 20 MG/50 ML IVPB 20 MG/50 ML MG IVPB ONE (23:20)
[2017-02-09] MEDS: LEVOTHYROXINE NA 25 MCG TABLET (FP) PO SCH (06:35)
--- NOTE | 2017-02-09 08:13 | PN ---
Physical Exam: SUBJECTIVE: Patient seen and examined, reports feeling better, reports + flatus , feels hungry, denies any abdominal pain. OBJECTIVE:This is a 66 y/o woman with a history of splenectomy s/p trauma, multiple SBO, SVT (Ablation), Type II DM, HLD, and thyroid ca s/p thyroidectomy admitted with high-grade partial SBO and dehydration. Vital Signs Period Temp Pulse Resp BP Sys/Marshall Pulse Ox Last 24 Hr 98.7 F-99.0 F 75-85 18-19 110-135/52-53 97-97 GENERAL: The patient is awake, alert, and fully oriented, in no acute distress. HEAD: Normal with no signs of trauma. EYES: PERRL, extraocular movements intact, sclera anicteric, conjunctiva clear. No ptosis. ENT: Ears normal, nares patent, oropharynx clear without exudates, moist mucous membranes. NECK: Trachea midline, full range of motion, supple. LUNGS: Breath sounds equal, clear to auscultation bilaterally, no wheezes, no crackles, no accessory muscle use. HEART: Regular rate and rhythm, S1, S2 without murmur, rub or gallop. ABDOMEN: Soft, nontender, nondistended, normoactive bowel sounds, no guarding, no rebound, no hepatosplenomegaly, no masses. EXTREMITIES: 2+ pulses, warm, well-perfused, no edema. NEUROLOGICAL: Cranial nerves II through XII grossly intact. Normal speech, gait not observed. PSYCH: Normal mood, normal affect. SKIN: Warm, dry, normal turgor, no rashes or lesions noted Laboratory Results - last 24 hr CBC WBC 11.1 K/mm3 (4.0-10.8) H 02/09/17 07:30 RBC 4.34 M/mm3 (3.60-5.2) 02/09/17 07:30 Hgb 12.7 GM/dl (10.7-15.3) 02/09/17 07:30 Hct 39.0 % (32.4-45.2) 02/09/17 07:30 MCV 90.0 fl (80-96) 02/09/17 07:30 MCH 29.3 pg (25.7-33.7) 02/09/17 07:30 MCHC 32.6 g/dl (32.0-36.0) 02/09/17 07:30 RDW 13.0 % (11.6-15.6) 02/09/17 07:30 Plt Count 382 K/MM3 (134-434) 02/09/17 07:30 MPV 9.4 fl (7.5-11.1) 02/09/17 07:30 Neutrophils % 64.0 % (42.8-82.8) 02/09/17 07:30 Neutrophils % (Manual) 68.0 % (42.8-82.8) 02/07/17 07:28 Band Neutrophils % 0.0 % (0-10) 02/07/17 07:28 Lymphocytes % 25.6 % (8-40) 02/09/17 07:30 Lymphocytes % (Manual) 8.0 % (8-40) 02/06/17 19:50 Monocytes % 9.4 % (3.8-10.2) 02/09/17 07:30 Monocytes % (Manual) 5 % (3.8-10.2) 02/06/17 19:50 Eosinophils % 0.6 % (0-4.5) 02/09/17 07:30 Basophils % 0.4 % (0-2.0) 02/09/17 07:30 Platelet Estimate Adequate 02/07/17 07:28 Platelet Comment Normal 02/07/17 07:28 CMP Sodium 137 mmol/L (136-145) 02/09/17 07:30 Potassium 3.6 mmol/L (3.5-5.1) 02/09/17 07:30 Chloride 109 mmol/L (98-107) H 02/09/17 07:30 Carbon Dioxide 17 mmol/L (22-28) L D 02/09/17 07:30 Anion Gap 11 (8-16) 02/09/17 07:30 BUN 9 mg/dl (7-18) 02/09/17 07:30 Creatinine < 0.4 mg/dl (0.6-1.3) L 02/09/17 07:30 Creat Clearance w eGFR > 60 (>60) 02/06/17 19:50 POC Glucometer 107 UNITS (80-120) 02/07/17 06:42 Random Glucose 58 mg/dl (74-106) L D 02/09/17 07:30 Lactic Acid 1.4 mmol/L (0.4-2.0) 02/06/17 22:25 Calcium 8.4 mg/dl (8.4-10.2) 02/09/17 07:30 Phosphorus 3.2 mg/dl (2.5-4.6) 02/07/17 07:28 Magnesium 1.8 mg/dL (1.8-2.4) 02/09/17 07:30 Total Bilirubin 1.8 mg/dl (0.2-1.0) H D 02/06/17 19:50 AST 22 U/L (10-42) 02/06/17 19:50 ALT 19 U/L (10-40) 02/06/17 19:50 Alkaline Phosphatase 94 U/L (32-92) H 02/06/17 19:50 Creatine Kinase 47 IU/L (26-192) 02/06/17 19:50 Troponin I < 0.03 ng/ml (0.03-0.50) L 02/06/17 19:50 Total Protein 8.1 g/dl (6.4-8.3) 02/06/17 19:50 Albumin 4.7 g/dl (3.5-5.0) 02/06/17 19:50 Total Amylase 72 U/L (25-125) 02/07/17 07:28 Lipase 46 U/L (22-51) 02/07/17 07:28 TSH 1.42 uIU/ml (0.358-3.74) D 02/07/17 07:28 Active Medications Generic Name Dose Route Start Last Admin Trade Name Preetq PRN Reason Stop Dose Admin Sodium Chloride 1,000 mls @ 75 mls/hr 02/06/17 23:45 02/07/17 23:25 Normal Saline - IV 75 mls/hr ASDIR CRISTAL Administration Levothyroxine Sodium 25 mcg 02/07/17 07:00 02/09/17 06:35 Synthroid - PO 25 mcg DAILY@0700 CRISTAL Administration Morphine Sulfate 4 mg 02/07/17 01:47 02/07/17 17:44 Morphine Sulfate IVPUSH 4 mg Q6H PRN Administration PAIN IMAGING CT of abd/pelvis: finding consistent with high grade partial sbo ASSESSMENT/PLAN: 1. Small Bowel Obstruction - Improving--> flatus, + bowel sounds, pending repeat abd xray - Surgery, Dr Peterson consulted and following - Strict NPO 2. heme: Leukocytosis - wbc 11.1 trending downward, patient is afebrile, likely secondary to stress - trend wbc and fever curve 4.endo Diabetes Mellitus -ISS -FS q6h Hypothyroidism S/p thyroidectomy - TSH wnl - Continue Levothyroxine 6.card SVT - S/p Ablation, pt is nsr Prolonged QT -Avoid medications that can cause prolonged QT . FEN -NS@75ml/hr -Replete lytes prn -NPO DVT Prophylaxis - OOB - Sq[facility] Visit type - Emergency Visit Emergency Visit: Yes ED Registration Date: 02/06/17 Care time: The patient presented to the Emergency Department on the above date and was hospitalized for further evaluation of their emergent condition. - New Patient This patient is new to me today: Yes Date on this admission: 02/09/17 - Critical Care Critical Care patient: No - Discharge Referral Referred to [facility] Med P.C.: No
[2017-02-09 08:47] LABS: BASOPHIL 0.4 % (0-2.0); EOSINOPHIL 0.6 % (0-4.5); MCH 29.3 pg (25.7-33.7); MCHC 32.6 g/dl (32.0-36.0); MEAN PLT VOLUME 9.4 fl (7.5-11.1); PLATELET COUNT 382 K/MM3 (134-434); WHITE BLOOD COUNT 11.1 K/mm3 (4.0-10.8)
[2017-02-09 09:06] LABS: ANION GAP 11 (8-16); CALCIUM 8.4 mg/dl (8.4-10.2); CO2 17 mmol/L (22-28); GLUCOSE,RANDOM 58 mg/dl (74-106); MAGNESIUM 1.8 mg/dL (1.8-2.4)
[2017-02-09 09:22] LABS: CREATININE < 0.4 mg/dl (0.6-1.3)
[2017-02-09] MEDS: PANTOPRAZOLE SODIUM 40 MG VIAL IVPUSH SCH (10:36)
[2017-02-09] MEDS ORDERED: INSULIN SLIDING SCALE (NOVOLOG) 1 VIAL SQ SCH (14:00)
[2017-02-09] MEDS: SODIUM CHLORIDE 1,000 ML IV SCH (23:24)
[2017-02-10] MEDS: LEVOTHYROXINE NA 25 MCG TABLET (FP) PO SCH (06:24)
--- NOTE | 2017-02-10 07:37 | DS ---
Physical Exam: SUBJECTIVE: Patient seen and examined, patient reports feeling better, denies any abdominal pain, tolerating soft diet, wants to go home. OBJECTIVE:This is a 66 y/o woman with a past medical history of SBO, SVT( Ablation), Type II DM, HLD. Who presents to the ED with nausea, vomiting, abdominal pain x last night. Patient reports having bilious vomiting every 20 min. Patient reports not being able to tolerate any liquids or solids. Patient denies fever, cough, SOB, dizziness, CP, diarrhea, melena, hematochezia, constipation, dysuria ER course was notable for: (1) CTAP- Partial SBO (2) WBC 20.9 (3) Glucose 217 Vital Signs Period Temp Pulse Resp BP Sys/Marshall Pulse Ox Last 24 Hr 98.1 F-99.4 F 68-84 16-20 116-150/57-69 95-97 PHYSICAL EXAM GENERAL: The patient is awake, alert, and fully oriented, in no acute distress. HEAD: Normal with no signs of trauma. EYES: PERRL, extraocular movements intact, sclera anicteric, conjunctiva clear. ENT: Ears normal, nares patent, oropharynx clear without exudates, moist mucous membranes. NECK: Trachea midline, full range of motion, supple. LUNGS: Breath sounds equal, clear to auscultation bilaterally, no wheezes, no crackles, no accessory muscle use. HEART: Regular rate and rhythm, S1, S2 without murmur, rub or gallop. ABDOMEN: Soft, nontender, nondistended, normoactive bowel sounds, no guarding, no rebound, no hepatosplenomegaly, no masses. EXTREMITIES: 2+ pulses, warm, well-perfused, no edema. NEUROLOGICAL: Cranial nerves II through XII grossly intact. Normal speech, gait not observed. PSYCH: Normal mood, normal affect. SKIN: Warm, dry, normal turgor, no rashes or lesions noted. LABS Laboratory Results - last 24 hr 02/09/17 02/09/17 02/09/17 07:30 07:30 17:46 WBC 11.1 H RBC 4.34 Hgb 12.7 Hct 39.0 MCV 90.0 MCH 29.3 MCHC 32.6 RDW 13.0 Plt Count 382 MPV 9.4 Neutrophils % 64.0 Lymphocytes % 25.6 Monocytes % 9.4 Eosinophils % 0.6 Basophils % 0.4 Sodium 137 Potassium 3.6 Chloride 109 H Carbon Dioxide 17 L D Anion Gap 11 BUN 9 Creatinine < 0.4 L POC Glucometer 76 Random Glucose 58 L D Calcium 8.4 Magnesium 1.8 02/10/17 06:31 WBC RBC Hgb Hct MCV MCH MCHC RDW Plt Count MPV Neutrophils % Lymphocytes % Monocytes % Eosinophils % Basophils % Sodium Potassium Chloride Carbon Dioxide Anion Gap BUN Creatinine POC Glucometer 85 Random Glucose Calcium Magnesium MAGING CT of abd/pelvis: finding consistent with high grade partial sbo HOSPITAL COURSE: Patient was admitted from the emergency department for Small Bowel Obstruction, bowel rest for 2 days, patient declined NGT, bowel sounds improved repeat xray showed resolution of sbo. trialed clear liquids with advancement. Surgery, Dr Peterson consulted and followed patient throughout admission. Patient was noted to have Leukocytosis upon arrival, wbc 11.1 trending downward , patient is afebrile, likely secondary to stress. Date of Admission:02/06/17 Date of Discharge: 02/10/17 Minutes to complete discharge: 45 Discharge Summary Reason For Visit: SMALL BOWEL OBSTRUCTION/DEHYDRATION Current Active Problems Dehydration (Acute) Small bowel obstruction (Acute) Condition: Stable - Instructions Diet, Activity, Other Instructions: resume soft diet, continue all medications as prescribed please follow up with your pcp, Dr Vernon within 2 weeks if any new or persistent symptoms develop please return to the emergency department. Referrals: Gasper Vernon MD [Primary Care Provider] - Disposition: HOME - Home Medications Comprehensive Discharge Medication List: Ambulatory Orders RX: Levothyroxine [Synthroid -] 25 mcg PO DAILY 01/08/15 Glimepiride [Amaryl -] 2 mg PO BID 09/13/15 This patient is new to me today: No Emergency Visit: Yes ED Registration Date: 02/06/17 Care time: The patient presented to the Emergency Department on the above date and was hospitalized for further evaluation of their emergent condition. Critical Care patient: No - Discharge Referral Referred to [facility] Med P.C.: Yes Physician Referral: Gasper Vernon MD (Int Med)
[2017-02-10] MEDS ORDERED: POTASSIUM CHLORIDE TABS 20 MEQ TABLET.ER (FP) PO ONE (09:00)
[2017-02-10] MEDS ORDERED: METOPROLOL TARTRATE 25 MG TABLET (FP) PO SCH (10:00)
[2017-02-10] MEDS ORDERED: ENALAPRIL MALEATE 10 MG TABLET (FP) PO SCH (10:00)
[2017-02-10] MEDS: PANTOPRAZOLE SODIUM 40 MG VIAL IVPUSH SCH (10:19)
[2017-02-10 14:30] VITALS: BP 128/71; PULSE 76; TEMP 98.9
== END 2017-02-10 15:20 | disposition home or self-care (01) | DRG 389 ==
LOC: FER 19:38 → FM/S 22:53
PROVIDERS: ADMIT Internal Medicine; ATTEND Nurse Practitioner Family
DX: K56.690 Other partial intestinal obstruction (principal); I42.8 Other cardiomyopathies; I47.1 Supraventricular tachycardia; E86.0 Dehydration; E11.9 Type 2 diabetes mellitus without complications; E78.5 Hyperlipidemia, unspecified; Z87.891 Personal history of nicotine dependence; Z88.0 Allergy status to penicillin; D72.829 Elevated white blood cell count, unspecified; E03.9 Hypothyroidism, unspecified; I45.81 Long QT syndrome; C73 Malignant neoplasm of thyroid gland
CPT/HCPCS: 36415; 71010-TC; 74020-TC; 74176-TC; 80048; 80053; 81003; 81015; 82150; 82550; 83605; 83690; 83735; 84100; 84443; 84484; 85025; 93005; 99283-25

== ENCOUNTER 2017-02-19 23:25 | Inpatient (IN) | payer OTHER, MEDICARE ==
--- NOTE | 2017-02-19 23:39 | PDOC ---
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 Patient was admitted with partial small bowel obstruction approximately 2 weeks ago. SBO resolved without need for surgery after 4 day admission. Patient states that she has been eating soft foods since discharge. She was not feeling completely well from GI standpoint (for example, feeling queasy frequently) initially but then improved. Today, she ate a small amount of Thanksgiving dinner although her appetite was not good. Within a few hours, she became nauseous and abdomen became extremely distended. Just prior to presentation, she vomited partially digested food. No blood/coffee grounds in emesis. She had small amount of normal bowel movement this morning and has passed very little gas throughout the day today. Past History - Past Medical History Allergies/Adverse Reactions: Allergies Allergy/AdvReac Type Severity Reaction Status Date / Time aspirin Allergy Intermediate Rash Verified 02/07/17 00:07 azithromycin [From Zithromax] Allergy Intermediate Hives Verified 09/19/15 07:45 Cephalosporins Allergy Intermediate Hives Verified 09/19/15 07:45 ciprofloxacin HCl Allergy Intermediate tachycardia Verified 09/19/15 07:45 [From Cipro] clarithromycin [From Biaxin] Allergy Intermediate Hives Verified 09/19/15 07:45 NSAIDS (Non-Steroidal Allergy Intermediate Swelling Verified 09/19/15 07:45 Anti-Inflamma Penicillins Allergy Intermediate Hives Verified 09/19/15 07:45 amoxicillin Allergy Verified 02/06/17 19:40 cephalexin monohydrate Allergy Verified 02/06/17 19:40 [From Keflex] ciprofloxacin [From Cipro] Allergy tachycardia Verified 09/19/15 07:45 cyclobenzaprine HCl Allergy Rash Verified 02/07/17 00:07 [From Flexeril] diphenhydramine HCl Allergy Verified 09/19/15 07:45 [From Benadryl] rosuvastatin calcium Allergy Itching Verified 02/06/17 23:48 [From Crestor] including throat. [id number] Reductase Allergy Verified 02/06/17 19:40 Inhibitor Sulfa (Sulfonamide Allergy Verified 09/19/15 07:45 Antibiotics) [Sulfa(Sulfonamide Antibiotics)] fenofibrate AdvReac muscle Verified 02/06/17 23:48 aches metformin HCl AdvReac abdominal Verified 02/06/17 23:48 [From Kombiglyze XR] pain saxagliptin HCl AdvReac abdominal Verified 02/06/17 23:48 [From Kombiglyze XR] pain Home Medications: Ambulatory Orders Levothyroxine [Synthroid -] 25 mcg PO DAILY 01/08/15 Glimepiride [Glimepiride -] 2 mg PO BID 09/13/15 Anemia: No Asthma: Yes (COLD INDUCED ONLY DUE TO BETA BLOCKERS) Cancer: Yes (THYROID) Cardiac Disorders: Yes (SVT, CARDIAC ABLATION) CVA: No COPD: No CHF: Yes (S/P PNEUMONIA- 2000) Dementia: No Diabetes: Yes (TYPE II) GI Disorders: Yes (OBSTRUCTION) Disorders: No HTN: Yes Hypercholesterolemia: Yes (HIGH TRIGLYCERIDES) Liver Disease: No Seizures: No Thyroid Disease: Yes (THYROIDECTOMY) - Surgical History Abdominal Surgery: Yes (SPLEENECTOMY) Appendectomy: No Cardiac Surgery: Yes (ABLATION) Cholecystectomy: No Lung Surgery: No Neurologic Surgery: No Orthopedic Surgery: Yes (RIGHT TOTAL KNEE REPLACEMENT-2011) - Suicide/Smoking/Psychosocial Hx Smoking Status: Yes Smoking History: Unknown if ever smoked Have you smoked in the past 12 months: No Number of Cigarettes Smoked Daily: 0 If you are a former smoker, when did you quit?: 2000 Hx Alcohol Use: No Drug/Substance Use Hx: No Substance Use Type: Marijuana Hx Substance Use Treatment: No Review of Systems - Review of Systems Able to Perform ROS?: Yes Comments:: 12 point review of systems is negative except for what is noted in the history of present illness *Physical Exam - Vital Signs Last Vital Signs Temp Pulse Resp BP Pulse Ox 97.6 F 108 H 16 146/97 99 02/19/17 23:27 02/19/17 23:27 02/19/17 23:27 02/19/17 23:27 02/19/17 23:27 - Physical Exam Comments: GENERAL: Adult female, alert and oriented 3, in mild distress secondary to abdominal discomfort HEAD: Normal with no signs of trauma. EYES: PERRLA, EOMI, sclera anicteric, conjunctiva clear. ENT: Ears normal, nares patent, oropharynx clear without exudates. Dry mucous membranes. NECK: Normal range of motion, supple without lymphadenopathy, JVD, or masses. LUNGS: Breath sounds equal, clear to auscultation bilaterally. No wheezes, and no crackles. HEART:Regular rate and rhythm, normal S1 and S2 without murmur, rub or gallop. ABDOMEN:.Hyperactive bowel sounds; moderate distention, soft; mild generalized tenderness without guarding/rebound/masses EXTREMITIES: Normal range of motion, no edema. No clubbing or cyanosis. No erythema, or tenderness. NEUROLOGICAL: Cranial nerves II through XII grossly intact. Normal speech. No focal neurological deficits. MUSCULOSKELETAL: Back non-tender to palpation, no CVA tenderness SKIN: Warm, Dry, normal turgor, no rashes or lesions noted. Portal chest x-ray shows no evidence of acute disease. 12-lead electrocardiogram shows normal sinus rhythm at 83 bpm; no evidence of acute ST or T-wave abnormalities. There is poor R-wave progression. ED Treatment Course - LABORATORY CBC & Chemistry Diagram: 02/22/17 06:00 02/22/17 06:00 Progress Note - Progress Note Progress Note: This 66-year-old woman who presents with a history of multiple episodes of adhesive small bowel obstruction, recently discharged after 4 day admission for partial small bowel obstruction relates one-day history of worsening abdominal discomfort with distention/vomiting. The patient had eaten a small amount of Thanksgiving dinner. She vomited partially digested contents of that dinner a few hours after consuming it. She continued to be symptomatic and presented here. On exam, patient has a soft, distended abdomen with intermittent hyperactive bowel sounds consistent with early small bowel obstruction. Laboratory evaluation notable for elevated white blood cell count (18,000) CT scanner here is currently out of service. Since patient's history is very typical of her early small bowel obstructions in the past, flat and upright of the abdomen performed to preliminarily evaluate for evidence of SBO. Upright abdominal view reveals several air-fluid levels and distended(4.5 cm) loop of small bowel in the right lateral aspect abdomen. Given patient's previous history of adhesive small bowel obstruction and current symptoms, FUA highly suggestive of early small bowel obstruction. Patient will need admission for IV fluids, NPO status and observation. [facility] contacted *DC/Admit/Observation/Transfer Diagnosis at time of Disposition: Small bowel obstruction - Discharge Dispostion Condition at time of disposition: Stable Admit: Yes - Referrals - Patient Instructions - Post Discharge Activity
[2017-02-19] MEDS ORDERED: SODIUM CHLORIDE 1,000 ML IV STA (23:44)
[2017-02-20 00:24] LABS: BASOPHIL 0.7 % (0-2.0); EOSINOPHIL 1.9 % (0-4.5); MCH 29.5 pg (25.7-33.7); MCHC 33.2 g/dl (32.0-36.0); MEAN CELL VOLUME 88.9 fl (80-96); MEAN PLT VOLUME 8.9 fl (7.5-11.1); NEUTROPHILS 75.8 % (42.8-82.8); PLATELET COUNT 647 K/MM3 (134-434); RDW 13.7 % (11.6-15.6); WHITE BLOOD COUNT 18.4 K/mm3 (4.0-10.0)
[2017-02-20 00:26] LABS: URINE APPEARANCE CLEAR; URINE BILIRUBIN NEGATIVE (NEGATIVE); URINE BLOOD 1+ (NEGATIVE); URINE COLOR YELLOW; URINE GLUCOSE (UA) NEGATIVE (NEGATIVE); URINE KETONE NEGATIVE (NEGATIVE); URINE NITRITE NEGATIVE (NEGATIVE); URINE PROTEIN NEGATIVE (NEGATIVE); URINE UROBILINOGEN NEGATIVE mg/dL (0.2-1.0)
[2017-02-20 00:28] LABS: URINE HYALINE CAST 3 /lpf; URINE MUCUS RARE; URINE RBC 3 /hpf (0-3); URINE WBC 3 /hpf (3-5)
[2017-02-20 00:53] LABS: ALBUMIN 4.1 g/dl (3.4-5.0); ALK PHOS 103 U/L (45-117); ANION GAP 10 (8-16); BILIRUBIN,TOTAL 0.5 mg/dL (0.2-1.0); CALCIUM 9.8 mg/dL (8.5-10.1); CO2 27 mmol/L (21-32); CREATININE 0.5 mg/dL (0.55-1.02); GLUCOSE,RANDOM 212 mg/dL (74-106); SGPT/ALT 42 U/L (12-78); TOT PROT 7.7 g/dl (6.4-8.2)
[2017-02-20 00:54] LABS: SGOT/AST 28 U/L (15-37)
[2017-02-20] MEDS ORDERED: ONDANSETRON 4 MG/2 ML VIAL IVPUSH ONE (01:02)
[2017-02-20] MEDS ORDERED: ONDANSETRON 4 MG/2 ML VIAL ONE (01:14)
[2017-02-20] MEDS ORDERED: ONDANSETRON 4 MG/2 ML VIAL IVPUSH PRN (02:51)
[2017-02-20] MEDS: SODIUM CHLORIDE 1,000 ML IV SCH ×2 (03:19→21:29)
[2017-02-20 03:48] VITALS: BMI 24.7
[2017-02-20] MEDS: INSULIN SLIDING SCALE (NOVOLOG) 1 VIAL SQ SCH ×2 (06:23→18:40)
[2017-02-20] MEDS ORDERED: LEVOTHYROXINE NA 25 MCG TABLET (FP) PO SCH (07:00)
[2017-02-20 09:01] LABS: BASOPHIL 0.4 % (0-2.0); MCH 29.9 pg (25.7-33.7); MCHC 33.4 g/dl (32.0-36.0); MEAN CELL VOLUME 89.6 fl (80-96); NEUTROPHILS 78.6 % (42.8-82.8); RDW 13.4 % (11.6-15.6); WHITE BLOOD COUNT 18.5 K/mm3 (4.0-10.8)
[2017-02-20 09:06] LABS: ANION GAP 10 (8-16); CALCIUM 9.8 mg/dl (8.4-10.2); CO2 25 mmol/L (22-28); GLUCOSE,RANDOM 191 mg/dl (74-106)
[2017-02-20 09:24] LABS: CREATININE 0.4 mg/dl (0.6-1.3)
[2017-02-20 09:54] LABS: PLATELET COUNT 699 K/MM3 (134-434)
[2017-02-20 09:55] LABS: MEAN PLT VOLUME 9.2 fl (7.5-11.1)
[2017-02-20] MEDS ORDERED: ENOXAPARIN NA (PORCINE) 30 MG/0.3 ML DISP.SYRIN SQ SCH (10:00)
[2017-02-20] MEDS ORDERED: IMIPRAMINE HCL 10 MG PO SCH (10:00)
[2017-02-20] MEDS ORDERED: METOPROLOL TARTRATE 25 MG TABLET (FP) PO SCH (10:00)
[2017-02-20] MEDS ORDERED: IMIPRAMINE HCL PO SCH (10:00)
[2017-02-20 10:05] LABS: URINE LEUK ESTERASE Negative (NEGATIVE)
[2017-02-20] MEDS: ENALAPRIL MALEATE 10 MG TABLET (FP) PO SCH ×2 (11:53→21:28)
--- NOTE | 2017-02-20 12:01 | HP ---
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 A few hours after Thanksgiving dinner she became nauseous and vomited partially digested food. Her abdomen became extremely distended. In ED, abdominal film showed SBO. Patient denies fever, sweats, chills. Had a small bowel movement prior to presentation, no diarrhea. Denies dysuria, frequency, urgency. ER course (1) Abdominal film: +SBO Recent Travel: No PAST MEDICAL HISTORY: Non-ischemic cardiomyopathy NIDDM Thyroid cancer Chronic leukocytosis Recurrent SBOs PAST SURGICAL HISTORY: Thyroid tumor removal (2006) Splenectomy (1968) x 1 Social History: Smoking: former Alcohol: no Drugs: no Family History: Allergies aspirin Allergy (Intermediate, Verified 02/07/17 00:07) Rash azithromycin [From Zithromax] Allergy (Intermediate, Verified 09/19/15 07:45) Hives Cephalosporins Allergy (Intermediate, Verified 09/19/15 07:45) Hives ciprofloxacin HCl [From Cipro] Allergy (Intermediate, Verified 09/19/15 07:45) tachycardia clarithromycin [From Biaxin] Allergy (Intermediate, Verified 09/19/15 07:45) Hives NSAIDS (Non-Steroidal Anti-Inflamma Allergy (Intermediate, Verified 09/19/15 07: 45) Swelling Penicillins Allergy (Intermediate, Verified 09/19/15 07:45) Hives amoxicillin Allergy (Verified 02/06/17 19:40) cephalexin monohydrate [From Keflex] Allergy (Verified 02/06/17 19:40) ciprofloxacin [From Cipro] Allergy (Verified 09/19/15 07:45) tachycardia cyclobenzaprine HCl [From Flexeril] Allergy (Verified 02/07/17 00:07) Rash diphenhydramine HCl [From Benadryl] Allergy (Verified 09/19/15 07:45) rosuvastatin calcium [From Crestor] Allergy (Verified 02/06/17 23:48) Itching including throat. [id number] Reductase Inhibitor Allergy (Verified 02/06/17 19:40) Sulfa (Sulfonamide Antibiotics) [Sulfa(Sulfonamide Antibiotics)] Allergy ( Verified 09/19/15 07:45) fenofibrate Adverse Reaction (Verified 02/06/17 23:48) muscle aches metformin HCl [From Kombiglyze XR] Adverse Reaction (Verified 02/06/17 23:48) abdominal pain saxagliptin HCl [From Kombiglyze XR] Adverse Reaction (Verified 02/06/17 23:48) abdominal pain HOME MEDICATIONS: Home Medications Medication Instructions Recorded Levothyroxine [Synthroid -] 25 mcg PO DAILY 01/08/15 Glimepiride [Glimepiride -] 2 mg PO BID 09/13/15 REVIEW OF SYSTEMS CONSTITUTIONAL: Absent: fever, chills, diaphoresis, generalized weakness, malaise, loss of appetite, weight change HEENT: Absent: rhinorrhea, nasal congestion, throat pain, throat swelling, difficulty swallowing, mouth swelling, ear pain, eye pain, visual changes CARDIOVASCULAR: Absent: chest pain, syncope, palpitations, irregular heart rate, lightheadedness , peripheral edema RESPIRATORY: Absent: cough, shortness of breath, dyspnea with exertion, orthopnea, wheezing, stridor, hemoptysis GASTROINTESTINAL: Present: abdominal pain, abdominal distension, vomiting Absent: diarrhea, constipation, melena, hematochezia GENITOURINARY: Absent: dysuria, frequency, urgency, hesitancy, hematuria, flank pain, genital pain MUSCULOSKELETAL: Absent: myalgia, arthralgia, joint swelling, back pain, neck pain SKIN: Absent: rash, itching, pallor HEMATOLOGIC/IMMUNOLOGIC: Absent: easy bleeding, easy bruising, lymphadenopathy, frequent infections ENDOCRINE: Absent: unexplained weight gain, unexplained weight loss, heat intolerance, cold intolerance NEUROLOGIC: Absent: headache, focal weakness or paresthesias, dizziness, unsteady gait, seizure, mental status changes, bladder or bowel incontinence PSYCHIATRIC: Absent: anxiety, depression, suicidal or homicidal ideation, hallucinations. PHYSICAL EXAMINATION Vital Signs - 24 hr 02/19/17 02/20/17 02/20/17 23:27 02:39 02:52 Temperature 97.6 F 98.3 F 98.5 F Pulse Rate 108 H 86 Pulse Rate [ 86 Radial] Respiratory 16 16 19 Rate Blood Pressure 146/97 150/84 Blood Pressure 140/78 [Arm] O2 Sat by Pulse 99 96 Oximetry (%) 02/20/17 02/20/17 02/20/17 06:51 09:00 10:26 Temperature 98.4 F 98.4 F Pulse Rate 86 78 Pulse Rate [ Radial] Respiratory 18 20 20 Rate Blood Pressure 147/73 140/74 Blood Pressure [Arm] O2 Sat by Pulse Oximetry (%) GENERAL: Awake, alert, and fully oriented, in no acute distress. HEAD: Normal with no signs of trauma. EYES: Pupils equal, round and reactive to light, extraocular movements intact, sclera anicteric, conjunctiva clear. No ptosis EARS, NOSE, THROAT: Ears normal, nares patent, oropharynx clear without exudates. Moist mucous membranes. NECK: Normal range of motion, supple without lymphadenopathy, JVD, or masses. LUNGS: Breath sounds equal, clear to auscultation bilaterally. No wheezes, and no crackles. No accessory muscle use. HEART: Regular rate and rhythm, normal S1 and S2 without murmur, rub or gallop. ABDOMEN: Soft, nontender with distraction, not distended, active bowel sounds x 4; no guarding, no rebound; NGT in situ, 800cc's greenish-fluid over 30 minutes MUSCULOSKELETAL: Normal range of motion at all joints. No bony deformities or tenderness. No CVA tenderness. UPPER EXTREMITIES: 2+ pulses, warm, well-perfused. No cyanosis. No clubbing. No peripheral edema. LOWER EXTREMITIES: 2+ pulses, warm, well-perfused. No calf tenderness. No peripheral edema. NEUROLOGICAL: Cranial nerves II-XII intact. Normal speech. Normal gait. PSYCHIATRIC: Anxious SKIN: Warm, dry, normal turgor Laboratory Results - last 24 hr 02/19/17 02/19/17 02/19/17 23:50 23:50 23:50 WBC 18.4 H RBC 5.18 Hgb 15.3 Hct 46.0 H MCV 88.9 MCH 29.5 MCHC 33.2 RDW 13.7 Plt Count 647 H MPV 8.9 Neutrophils % 75.8 Lymphocytes % 15.4 Monocytes % 6.2 Eosinophils % 1.9 Basophils % 0.7 Sodium 138 Potassium 4.5 Chloride 101 Carbon Dioxide 27 Anion Gap 10 BUN 9 Creatinine 0.5 L Creat Clearance w eGFR > 60 POC Glucometer Random Glucose 212 H Calcium 9.8 Total Bilirubin 0.5 AST 28 ALT 42 Alkaline Phosphatase 103 Total Protein 7.7 Albumin 4.1 Urine Color Yellow Urine Appearance Clear Urine pH 6.0 Ur Specific [place] 1.012 Urine Protein Negative Urine Glucose (UA) Negative Urine Ketones Negative Urine Blood 1+ H Urine Nitrite Negative Urine Bilirubin Negative Urine Urobilinogen Negative Ur Leukocyte Esterase Negative Ur Epithelial Cells Rare Hyaline Casts 3 Urine Mucus Rare 02/20/17 02/20/17 02/20/17 06:01 07:15 07:15 WBC 18.5 H D RBC 5.00 Hgb 14.9 D Hct 44.8 MCV 89.6 MCH 29.9 MCHC 33.4 RDW 13.4 Plt Count 699 H D MPV 9.2 Neutrophils % 78.6 D Lymphocytes % 14.6 D Monocytes % 5.4 Eosinophils % 1.0 Basophils % 0.4 Sodium 140 Potassium 4.8 D Chloride 105 Carbon Dioxide 25 D Anion Gap 10 BUN 8 Creatinine 0.4 L Creat Clearance w eGFR POC Glucometer 141 Random Glucose 191 H D Calcium 9.8 Total Bilirubin AST ALT Alkaline Phosphatase Total Protein Albumin Urine Color Urine Appearance Urine pH Ur Specific [place] Urine Protein Urine Glucose (UA) Urine Ketones Urine Blood Urine Nitrite Urine Bilirubin Urine Urobilinogen Ur Leukocyte Esterase Ur Epithelial Cells Hyaline Casts Urine Mucus ASSESSMENT/PLAN 66 year-old woman with a PMH of non-ischemic cardiomyopathy (2001), NIDDM, SVT with cardiac ablation, thyroid cancer s/p thyroidectomy (2006), 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 Admitted for SBO. SBO --FUA shows SBO --NGT placed with 800cc's green fluid in 30 minutes; large volume of air expelled with significant resolution of abdominal distension --continue NGT to LWS --NPO --CTAP with contrast ordered; because CT under repair at [facility], transfer to [facility] --surgery consult requested; Dr. Fuentes following Non-ischemic cardiomyopathy SVT s/p cardiac ablation --continue metoprolol NIDDM --Novolog sliding scale coverage Thyroid cancer s/p thyroidectomy --continue levothyroxine Asplenia --afebrile --leukocytosis is chronic --no antibiotics for now but closely monitor for s/s infection FEN Fluids: NS @ 125mL/hr Electrolytes: replete as indicated Nutrition: NPO DVT prophylaxis: hold chemical prophylaxis for possible surgery; reassess need daily Dispo: continues to require inpatient care. Full code. Visit type - Emergency Visit Emergency Visit: Yes ED Registration Date: 02/20/17 Care time: The patient presented to the Emergency Department on the above date and was hospitalized for further evaluation of their emergent condition. - New Patient This patient is new to me today: Yes Date on this admission: 02/21/17 - Critical Care Critical Care patient: No
[2017-02-20] MEDS ORDERED: METOPROLOL TARTRATE 5 MG/5 ML VIAL IVPUSH PRN (12:28)
[2017-02-20] MEDS: LORazepam 2 MG/ML SDV VIAL IVPUSH PRN (12:59)
[2017-02-21] MEDS: LORazepam 2 MG/ML SDV VIAL IVPUSH PRN ×2 (01:35→18:49)
[2017-02-21] MEDS: SODIUM CHLORIDE 1,000 ML IV SCH ×2 (03:05→05:00)
[2017-02-21] MEDS ORDERED: INSULIN SLIDING SCALE (NOVOLOG) 1 VIAL SQ SCH (07:00)
[2017-02-21 07:40] LABS: WHITE BLOOD COUNT 15.7 K/mm3 (4.0-10.8)
[2017-02-21 07:41] LABS: BASOPHIL 0.9 % (0-2.0); MCH 29.2 pg (25.7-33.7); MCHC 32.5 g/dl (32.0-36.0); MEAN CELL VOLUME 89.6 fl (80-96); MEAN PLT VOLUME 8.3 fl (7.5-11.1); NEUTROPHILS 64.4 % (42.8-82.8); PLATELET COUNT 561 K/MM3 (134-434); RDW 14.1 % (11.6-15.6)
[2017-02-21 08:26] LABS: ACTIVATED PTT 31.4 SECONDS (24.0-38.9); PROTHROMBIN TIME (PATIENT) 11.3 SEC (10.2-13.0)
[2017-02-21 09:03] LABS: CREATININE 0.4 mg/dL (0.55-1.02); GLUCOSE,RANDOM 77 mg/dL (74-106)
[2017-02-21 09:04] LABS: ALBUMIN 3.1 g/dl (3.4-5.0); ANION GAP 8 (8-16); BILIRUBIN,TOTAL 0.9 mg/dL (0.2-1.0); CALCIUM 7.9 mg/dL (8.5-10.1); CO2 25 mmol/L (21-32); PHOSPHOROUS 3.5 mg/dL (2.5-4.9)
[2017-02-21 09:05] LABS: ALK PHOS 90 U/L (45-117); SGOT/AST 22 U/L (15-37); SGPT/ALT 31 U/L (12-78)
[2017-02-21] MEDS ORDERED: PT OWN MED DRAWER 7, Y5N ONE (09:16)
[2017-02-21] MEDS: ENALAPRIL MALEATE 10 MG TABLET (FP) PO SCH ×2 (09:17→21:52)
[2017-02-21] MEDS: LEVOTHYROXINE SODIUM 100 MCG VIAL IVPUSH SCH (09:18)
--- NOTE | 2017-02-21 11:01 | PN ---
Progress Note (short form) - Note Progress Note: Subjective: The patient was seen and examined at the bedside she denies passing gas, nausea, vomiting. WBC remain elevated, but trending down Current Medications Generic Name Dose Route Start Last Admin Trade Name Freq PRN Reason Stop Dose Admin Enalapril Maleate 10 mg 02/20/17 10:00 02/21/17 09:17 Vasotec - PO Not Given BID CRISTAL Sodium Chloride 1,000 mls @ 125 mls/hr 02/20/17 03:00 02/21/17 05:00 Normal Saline - IV 125 mls/hr ASDIR CRISTAL Administration Insulin Aspart 1 vial 02/21/17 07:00 02/21/17 06:09 Novolog Vial Sliding Scale - SQ Not Given ACHS CRISTAL Protocol Levothyroxine Sodium 12.5 mcg 02/21/17 10:00 02/21/17 09:18 Synthroid Injection - IVPUSH 12.5 mcg DAILY CRISTAL Administration Lorazepam 0.5 mg 02/20/17 12:30 02/21/17 01:35 Ativan Injection - IVPUSH 0.5 mg Q6H PRN Administration ANXIETY Metoprolol Tartrate 5 mg 02/20/17 12:28 Lopressor Injection - IVPUSH Q4H PRN HYPERTENSION Non-Formulary Medication 0 mg 02/20/17 10:00 02/20/17 11:53 Imipramine Hcl [Imipramine Hcl] PO Not Given DAILY CRISTAL Ondansetron HCl 4 mg 02/20/17 02:51 02/20/17 03:52 Zofran Injection IVPUSH 4 mg Q6H PRN Administration NAUSEA Objective: Vital Signs Period Temp Pulse Resp BP Sys/Marshall Pulse Ox Last 24 Hr 97.1 F-98.5 F 101-110 19-20 131-152/78-97 98 Physical Exam: General: NAD, A&Ox3 HEENT: NGT in place to LWS Lungs: CTA bilaterally Heart: RRR, S1S2 Abd: Hypoactive bowel sounds in all 4 quadrants. Non-tender, non-distended Ext: Warm, well-perfused. 2+ DP/PT bilaterally Neuro: CN 2-12 intact CBCD WBC 15.7 K/mm3 (4.0-10.8) H 02/21/17 06:00 RBC 4.28 M/mm3 (3.60-5.2) 02/21/17 06:00 Hgb 12.5 GM/dl (10.7-15.3) D 02/21/17 06:00 Hct 38.4 % (32.4-45.2) 02/21/17 06:00 MCV 89.6 fl (80-96) 02/21/17 06:00 MCHC 32.5 g/dl (32.0-36.0) 02/21/17 06:00 RDW 14.1 % (11.6-15.6) 02/21/17 06:00 Plt Count 561 K/MM3 (134-434) H 02/21/17 06:00 MPV 8.3 fl (7.5-11.1) 02/21/17 06:00 CMP Sodium 140 mmol/L (136-145) 02/21/17 06:00 Potassium 3.5 mmol/L (3.5-5.1) D 02/21/17 06:00 Chloride 107 mmol/L (98-107) 02/21/17 06:00 Carbon Dioxide 25 mmol/L (21-32) 02/21/17 06:00 Anion Gap 8 (8-16) 02/21/17 06:00 BUN 4 mg/dL (7-18) L D 02/21/17 06:00 Creatinine 0.4 mg/dL (0.55-1.02) L 02/21/17 06:00 Creat Clearance w eGFR > 60 (>60) 02/21/17 06:00 Random Glucose 77 mg/dL (74-106) D 02/21/17 06:00 Calcium 7.9 mg/dL (8.5-10.1) L 02/21/17 06:00 Total Bilirubin 0.9 mg/dL (0.2-1.0) D 02/21/17 06:00 AST 22 U/L (15-37) D 02/21/17 06:00 ALT 31 U/L (12-78) D 02/21/17 06:00 Alkaline Phosphatase 90 U/L (45-117) 02/21/17 06:00 Total Protein 6.0 g/dl (6.4-8.2) L D 02/21/17 06:00 Albumin 3.1 g/dl (3.4-5.0) L D 02/21/17 06:00 Assessment: This is a 66 year old female with PMHx of non-ischemic cardiomyopathy, NIDDM, SVT s/p cardiac ablation, thyroid cancer s/p thyroidectomy (2006), s/p splenectomy 2/2 trauma (1968) with chronic leukocytosis, x1, who presented to the ED with recurrent SBO Plan: 1) Recurrent SBO - As evidence on CTAP - Recent admission 2 weeks ago with SBO as well - NPO - IV fluids - Pain management - F/u surgery consult 2) NIDDM - BGM q6h while npo - ISS q6h 3) Non-ischemic cardiomyopahty, SVT s/p ablation - Continue Lopressor IV while NPO 4) Thyroid cancer s/p thyroidectomy - Continue Synthroid 5) Asplenic - Here with leukocytosis which the patient states is chronic - No evidence of active infection at this time. UA negative. F/u blood cultures - No abx at this time 6) F/E/N: - IV fluids - Monitor electrolytes - NPO 7) Prophylaxis: - OOB ambulating - SCDs bilaterally 8) Dispo: - Requires continued inpatient care CODE STATUS: FULL CODE Visit type - Emergency Visit Emergency Visit: Yes ED Registration Date: 02/20/17 Care time: The patient presented to the Emergency Department on the above date and was hospitalized for further evaluation of their emergent condition. - New Patient This patient is new to me today: Yes Date on this admission: 02/21/17 - Critical Care Critical Care patient: No
[2017-02-21] MEDS: INSULIN SLIDING SCALE (NOVOLOG) 1 VIAL SQ SCH ×3 (11:21→23:26)
[2017-02-21] MEDS: DEXTROSE 5%-NORMAL SALINE 1,000 ML IV SCH ×2 (13:11→23:48)
[2017-02-21] MEDS: METOPROLOL TARTRATE 5 MG/5 ML VIAL IVPB PRN (22:22)
[2017-02-22] MEDS: METOPROLOL TARTRATE 5 MG/5 ML VIAL IVPB PRN (02:37)
[2017-02-22] MEDS: LORazepam 2 MG/ML SDV VIAL IVPUSH PRN ×2 (03:18→15:52)
[2017-02-22] MEDS: INSULIN SLIDING SCALE (NOVOLOG) 1 VIAL SQ SCH ×4 (06:59→23:33)
[2017-02-22 07:27] LABS: MCH 29.4 pg (25.7-33.7); MCHC 33.3 g/dl (32.0-36.0); MEAN CELL VOLUME 88.3 fl (80-96); MEAN PLT VOLUME 7.9 fl (7.5-11.1); PLATELET COUNT 567 K/MM3 (134-434); RDW 14.2 % (11.6-15.6); WHITE BLOOD COUNT 15.3 K/mm3 (4.0-10.0)
[2017-02-22 08:16] LABS: ALBUMIN 3.2 g/dl (3.4-5.0); ALK PHOS 95 U/L (45-117); ANION GAP 8 (8-16); BILIRUBIN,TOTAL 0.9 mg/dL (0.2-1.0); CALCIUM 8.3 mg/dL (8.5-10.1); CO2 27 mmol/L (21-32); CREATININE 0.4 mg/dL (0.55-1.02); GLUCOSE,RANDOM 175 mg/dL (74-106); SGOT/AST 20 U/L (15-37); SGPT/ALT 30 U/L (12-78); TOT PROT 6.5 g/dl (6.4-8.2)
[2017-02-22] MEDS ORDERED: PT OWN MED DRAWER 7, Y5N ONE (09:40)
[2017-02-22] MEDS: LEVOTHYROXINE SODIUM 100 MCG VIAL IVPUSH SCH (09:45)
[2017-02-22] MEDS: ENALAPRIL MALEATE 10 MG TABLET (FP) PO SCH ×2 (09:45→21:09)
[2017-02-22] MEDS: METOPROLOL TARTRATE 5 MG/5 ML VIAL IVPB SCH ×4 (11:42→22:51)
[2017-02-22] MEDS: DEXTROSE 5%-NORMAL SALINE 1,000 ML IV SCH ×2 (11:50→15:52)
--- NOTE | 2017-02-22 14:18 | PN ---
Physical Exam: SUBJECTIVE: Patient seen and examined. C/o irritation in throat from NGT. OBJECTIVE: Vital Signs Period Temp Pulse Resp BP Sys/Marshall Pulse Ox Last 24 Hr 98.2 F-98.9 F 98-113 18-20 125-177/82-94 95-95 GENERAL: The patient is awake, alert, and fully oriented, in no acute distress. ENT: Ears normal, right nare with NGT in place, oropharynx clear without exudates, moist mucous membranes. LUNGS: Breath sounds equal, clear to auscultation bilaterally, no wheezes, no crackles, no accessory muscle use. HEART: Regular rate and rhythm, S1, S2 without murmur, rub or gallop. ABDOMEN: Soft, nontender, nondistended, normoactive bowel sounds, no guarding, no rebound, no hepatosplenomegaly, no masses. NEUROLOGICAL: Cranial nerves II through XII grossly intact. Normal speech, gait not observed. Laboratory Results - last 24 hr 02/21/17 02/21/17 02/22/17 17:09 23:25 06:00 WBC 15.3 H RBC 4.64 Hgb 13.7 D Hct 41.0 MCV 88.3 MCH 29.4 MCHC 33.3 RDW 14.2 Plt Count 567 H MPV 7.9 D Manual Slide Review No Result Required. Sodium Potassium Chloride Carbon Dioxide Anion Gap BUN Creatinine Creat Clearance w eGFR POC Glucometer 96 125 Random Glucose Calcium Total Bilirubin AST ALT Alkaline Phosphatase Total Protein Albumin 02/22/17 02/22/17 02/22/17 06:00 06:59 11:44 WBC RBC Hgb Hct MCV MCH MCHC RDW Plt Count MPV Manual Slide Review Sodium 139 Potassium 3.5 Chloride 104 Carbon Dioxide 27 Anion Gap 8 BUN 2 L* D Creatinine 0.4 L Creat Clearance w eGFR > 60 POC Glucometer 154 142 Random Glucose 175 H D Calcium 8.3 L Total Bilirubin 0.9 AST 20 ALT 30 Alkaline Phosphatase 95 Total Protein 6.5 Albumin 3.2 L Active Medications Generic Name Dose Route Start Last Admin Trade Name Freq PRN Reason Stop Dose Admin Enalapril Maleate 10 mg 02/20/17 10:00 02/22/17 09:45 Vasotec - PO 10 mg BID CRISTAL Administration Dextrose/Sodium Chloride 1,000 mls @ 100 mls/hr 02/21/17 13:00 02/22/17 11:50 D5-Ns - IV 100 mls/hr ASDIR CRISTAL Administration Insulin Aspart 1 vial 02/21/17 11:00 02/22/17 11:55 Novolog Vial Sliding Scale - SQ Not Given Q6HPO CRISTAL Protocol Levothyroxine Sodium 12.5 mcg 02/21/17 10:00 02/22/17 09:45 Synthroid Injection - IVPUSH 12.5 mcg DAILY CRISTAL Administration Lorazepam 0.5 mg 02/20/17 12:30 02/22/17 03:18 Ativan Injection - IVPUSH 0.5 mg Q6H PRN Administration ANXIETY Metoprolol Tartrate 5 mg 02/22/17 11:00 02/22/17 11:42 Lopressor Injection - IVPB 5 mg Q4H CRISTAL Administration Non-Formulary Medication 0 mg 02/20/17 10:00 02/20/17 11:53 Imipramine Hcl [Imipramine Hcl] PO Not Given DAILY CRISTAL Ondansetron HCl 4 mg 02/20/17 02:51 02/20/17 03:52 Zofran Injection IVPUSH 4 mg Q6H PRN Administration NAUSEA Microbiology 02/20/17 13:50 Blood - Peripheral Venous Blood Culture - Preliminary NO GROWTH OBTAINED AFTER 48 HOURS, INCUBATION TO CONTINUE FOR 3 DAYS. 02/20/17 13:15 Blood - Peripheral Venous Blood Culture - Preliminary NO GROWTH OBTAINED AFTER 48 HOURS, INCUBATION TO CONTINUE FOR 3 DAYS. ASSESSMENT/PLAN: A: 66 yo woman with PMHx of non-ischemic cardiomyopathy, NIDDM, SVT s/p cardiac ablation, thyroid cancer s/p thyroidectomy (2006), s/p splenectomy 2/2 trauma ( 1968) with chronic leukocytosis, x1, with recurrent SBO P: Recurrent SBO - As evidence on CTAP - Recent admission 2 weeks ago with SBO as well - NPO - IV fluids - Pain management - F/u surgery consult NIDDM - BGM q6h while npo - ISS q6h Non-ischemic cardiomyopahty - Lopressor IV while NPO SVT s/p ablation Thyroid cancer s/p thyroidectomy - Continue Synthroid Asplenic - Here with leukocytosis which the patient states is chronic - No evidence of active infection at this time. - No abx at this time F/E/N - IV fluids - Monitor electrolytes - NPO PPX - OOB - SCDs Dispo- Requires continued inpatient care CODE STATUS: FULL CODE Visit type - Emergency Visit Emergency Visit: Yes ED Registration Date: 02/20/17 Care time: The patient presented to the Emergency Department on the above date and was hospitalized for further evaluation of their emergent condition. - New Patient This patient is new to me today: Yes Date on this admission: 02/22/17 - Critical Care Critical Care patient: No - Discharge Referral Referred to [facility] Med P.C.: No
[2017-02-23] MEDS: LORazepam 2 MG/ML SDV VIAL IVPUSH PRN (02:55)
[2017-02-23] MEDS: DEXTROSE 5%-NORMAL SALINE 1,000 ML IV SCH ×3 (03:41→17:41)
[2017-02-23] MEDS: METOPROLOL TARTRATE 5 MG/5 ML VIAL IVPB SCH ×6 (03:48→23:33)
[2017-02-23] MEDS: INSULIN SLIDING SCALE (NOVOLOG) 1 VIAL SQ SCH ×3 (06:01→17:41)
[2017-02-23 08:21] LABS: MCHC 32.7 g/dl (32.0-36.0); MEAN CELL VOLUME 88.9 fl (80-96); MEAN PLT VOLUME 8.2 fl (7.5-11.1); PLATELET COUNT 565 K/MM3 (134-434); RDW 13.7 % (11.6-15.6); WHITE BLOOD COUNT 17.7 K/mm3 (4.0-10.0)
[2017-02-23 08:34] LABS: ANION GAP 10 (8-16); CO2 32 mmol/L (21-32); CREATININE 0.4 mg/dL (0.55-1.02); GLUCOSE,RANDOM 188 mg/dL (74-106)
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
[2017-02-23] MEDS ORDERED: PANTOPRAZOLE SODIUM 40 MG VIAL IVPUSH ONE (12:00)
[2017-02-23] MEDS: LEVOTHYROXINE SODIUM 100 MCG VIAL IVPUSH SCH (12:33)
[2017-02-23] MEDS: ENALAPRIL MALEATE 10 MG TABLET (FP) PO SCH ×3 (12:37→21:29)
[2017-02-23 12:58] LABS: EOSINOPHIL 1.1 % (0-4.5); MCH 29.1 pg (25.7-33.7); MCHC 32.6 g/dl (32.0-36.0); MEAN CELL VOLUME 89.2 fl (80-96); MEAN PLT VOLUME 7.8 fl (7.5-11.1); NEUTROPHILS 72.7 % (42.8-82.8); PLATELET COUNT 568 K/MM3 (134-434); RDW 13.6 % (11.6-15.6); WHITE BLOOD COUNT 17.4 K/mm3 (4.0-10.0)
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
[2017-02-23] MEDS ORDERED: LIDOCAINE VISCOUS 2% ORAL/TOP 20 ML UNIT-DOSE CUP MM PRN (13:29)
--- NOTE | 2017-02-23 17:33 | PN ---
Progress Note (short form) - Note Progress Note: surgery pt seen and examined. recently treated for psbo at [facility], returns with recurrence at same location. Pt treated with ngt decompression and now feels well with resolution on kub. on exam abd is soft, nt. Plan- remove ngt. full liquids tomorrow if remains well. would then discharge on liquids for 1 week then lower fiber. If pt continues to recur may need surgical exploration in the future.
[2017-02-23] MEDS ORDERED: PT OWN MED DRAWER 7, Y5N ONE (21:27)
--- NOTE | 2017-02-23 23:17 | EKG ---
Test Reason : Blood Pressure : / mmHG Vent. Rate : 083 BPM Atrial Rate : 083 BPM P-R Int : 146 ms QRS Dur : 092 ms QT Int : 394 ms P-R-T Axes : 049 -15 024 degrees QTc Int : 462 ms NORMAL SINUS RHYTHM CANNOT RULE OUT ANTERIOR INFARCT , AGE UNDETERMINED ABNORMAL ECG WHEN COMPARED WITH ECG OF 06-FEB-2017 20:14, T WAVE VARIATION Confirmed by DORIAN LU, COLTEN ([id number]) on 02/23/2017 11:17:04 PM Referred By: DR SHARP Confirmed By:COLTEN ALARCON MD
[2017-02-24] MEDS: INSULIN SLIDING SCALE (NOVOLOG) 1 VIAL SQ SCH ×4 (00:30→17:24)
[2017-02-24] MEDS: METOPROLOL TARTRATE 5 MG/5 ML VIAL IVPB SCH ×3 (03:40→16:07)
[2017-02-24] MEDS: DEXTROSE 5%-NORMAL SALINE 1,000 ML IV SCH ×2 (04:20→15:42)
[2017-02-24 08:20] LABS: BASOPHIL 0.7 % (0-2.0); MCH 29.2 pg (25.7-33.7); MCHC 32.7 g/dl (32.0-36.0); MEAN CELL VOLUME 89.4 fl (80-96); MEAN PLT VOLUME 8.3 fl (7.5-11.1); NEUTROPHILS 57.2 % (42.8-82.8); PLATELET COUNT 534 K/MM3 (134-434); RDW 13.8 % (11.6-15.6); WHITE BLOOD COUNT 12.4 K/mm3 (4.0-10.0)
[2017-02-24 08:45] LABS: ALBUMIN 2.9 g/dl (3.4-5.0); ANION GAP 7 (8-16); BILIRUBIN,TOTAL 1.4 mg/dL (0.2-1.0); CALCIUM 8.4 mg/dL (8.5-10.1); CO2 28 mmol/L (21-32); CREATININE 0.5 mg/dL (0.55-1.02); GLUCOSE,RANDOM 188 mg/dL (74-106); MAGNESIUM 2.1 mg/dL (1.8-2.4); SGOT/AST 23 U/L (15-37); SGPT/ALT 27 U/L (12-78); TOT PROT 6.2 g/dl (6.4-8.2)
[2017-02-24 08:46] LABS: ALK PHOS 91 U/L (45-117)
[2017-02-24] MEDS ORDERED: PT OWN MED DRAWER 7, Y5N ONE ×2 (09:40→10:06)
[2017-02-24] MEDS: ENALAPRIL MALEATE 10 MG TABLET (FP) PO SCH (09:51)
[2017-02-24] MEDS ORDERED: PANTOPRAZOLE SODIUM 40 MG VIAL IVPUSH SCH (10:00)
[2017-02-24] MEDS: LEVOTHYROXINE SODIUM 100 MCG VIAL IVPUSH SCH (10:19)
--- NOTE | 2017-02-24 11:55 | PN ---
Progress Note, Physician History of Present Illness: Chart reviewed. NG out. Comfortable. No events. - Current Medication List Current Medications: Active Medications Enalapril Maleate (Vasotec -) 10 mg PO BID [facility] Last Admin: 02/24/17 09:51 Dose: 10 mg Dextrose/Sodium Chloride (D5-Ns -) 1,000 mls @ 100 mls/hr IV ASDIR [facility] Last Admin: 02/24/17 04:20 Dose: 100 mls/hr Insulin Aspart (Novolog Vial Sliding Scale -) 1 vial SQ Q6HPO [facility] PRN Reason: Protocol Last Admin: 02/24/17 11:34 Dose: Not Given Levothyroxine Sodium (Synthroid Injection -) 12.5 mcg IVPUSH DAILY [facility] Last Admin: 02/24/17 10:19 Dose: 12.5 mcg Lidocaine HCl (Xylocaine 2% Viscous Oral -) 20 ml MM Q6HPO PRN PRN Reason: ORAL PAIN/MOUTH SORES Metoprolol Tartrate (Lopressor Injection -) 5 mg IVPB Q4H [facility] Last Admin: 02/24/17 06:15 Dose: 5 mg Non-Formulary Medication (Imipramine Hcl [Imipramine Hcl]) 0 mg PO DAILY [facility] Last Admin: 02/20/17 11:53 Dose: Not Given Ondansetron HCl (Zofran Injection) 4 mg IVPUSH Q6H PRN PRN Reason: NAUSEA Last Admin: 02/20/17 03:52 Dose: 4 mg Pantoprazole Sodium (Protonix Iv) 40 mg IVPUSH DAILY [facility] Last Admin: 02/24/17 10:24 Dose: 40 mg - Objective Vital Signs: Vital Signs Temperature 98.3 F 02/24/17 05:45 Pulse Rate 80 02/24/17 06:15 Respiratory Rate 18 02/24/17 05:45 Blood Pressure 121/75 02/24/17 06:15 O2 Sat by Pulse Oximetry (%) 97 02/23/17 21:00 Constitutional: Yes: No Distress, Calm Eyes: Yes: Conjunctiva Clear HENT: Yes: Atraumatic Neck: Yes: Supple Cardiovascular: Yes: Regular Rate and Rhythm Respiratory: Yes: Regular Gastrointestinal: Yes: Normal Bowel Sounds, Soft. No: Distention, Tenderness, Tenderness, Epigastrium, Tenderness, Rebound, Vomiting Neurological: Yes: Alert, Oriented Labs: CBC, BMP 02/24/17 06:20 02/24/17 06:20 INR, PTT INR 1.00 (0.82-1.09) 02/21/17 06:00 CBCD WBC 12.4 K/mm3 (4.0-10.0) H 02/24/17 06:20 RBC 4.54 M/mm3 (3.60-5.2) 02/24/17 06:20 Hgb 13.2 GM/dL (10.7-15.3) 02/24/17 06:20 Hct 40.6 % (32.4-45.2) 02/24/17 06:20 MCV 89.4 fl (80-96) 02/24/17 06:20 MCHC 32.7 g/dl (32.0-36.0) 02/24/17 06:20 RDW 13.8 % (11.6-15.6) 02/24/17 06:20 Plt Count 534 K/MM3 (134-434) H 02/24/17 06:20 MPV 8.3 fl (7.5-11.1) 02/24/17 06:20 CMP Sodium 141 mmol/L (136-145) 02/24/17 06:20 Potassium 4.1 mmol/L (3.5-5.1) 02/24/17 06:20 Chloride 106 mmol/L (98-107) 02/24/17 06:20 Carbon Dioxide 28 mmol/L (21-32) 02/24/17 06:20 Anion Gap 7 (8-16) L 02/24/17 06:20 BUN 5 mg/dL (7-18) L 02/24/17 06:20 Creatinine 0.5 mg/dL (0.55-1.02) L D 02/24/17 06:20 Creat Clearance w eGFR > 60 (>60) 02/24/17 06:20 Calcium 8.4 mg/dL (8.5-10.1) L 02/24/17 06:20 Total Bilirubin 1.4 mg/dL (0.2-1.0) H D 02/24/17 06:20 AST 23 U/L (15-37) 02/24/17 06:20 ALT 27 U/L (12-78) 02/24/17 06:20 Alkaline Phosphatase 91 U/L (45-117) 02/24/17 06:20 Total Protein 6.2 g/dl (6.4-8.2) L 02/24/17 06:20 Albumin 2.9 g/dl (3.4-5.0) L 02/24/17 06:20 Problem List - Problems (1) Small bowel obstruction Code(s): K56.69 - OTHER INTESTINAL OBSTRUCTION * DO NOT USE * (2) Dehydration Code(s): E86.0 - DEHYDRATION Assessment/Plan full liquid diet today. Avoid raw vegetables Avoid large-sized, fatty meals Maintain snack-sized, low residual meals every 3-4 hrs diet for the next 1-2 weeks, Follow post d/c PCP in 1 week
[2017-02-24 14:28] VITALS: BP 145/79; PULSE 88; TEMP 98.7
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
== END 2017-02-24 19:05 | disposition home or self-care (01) | DRG 389 ==
LOC: FER 23:25 → FM/S 02-20 02:27 → J8W 02-20 11:26 → J6S 02-23 09:38
PROVIDERS: ADMIT Internal Medicine; ATTEND Nurse Practitioner Acute Care
PROC: 0D9670Z Drainage of Stomach with Drainage Device, Via Natural or Artificial Opening (ICD-10-PCS; principal; 2017-02-20)
DX: K56.699 Other intestinal obstruction unspecified as to partial versus complete obstruction (principal); I42.8 Other cardiomyopathies; I47.1 Supraventricular tachycardia; Q89.01 Asplenia (congenital); E11.9 Type 2 diabetes mellitus without complications; E78.00 Pure hypercholesterolemia, unspecified; Z96.651 Presence of right artificial knee joint; D72.828 Other elevated white blood cell count; E86.0 Dehydration; Z85.850 Personal history of malignant neoplasm of thyroid
CPT/HCPCS: 36415; 71020-TC; 74000-TC; 74020-TC; 74177-TC; 80048; 80053; 81003; 81015; 83735; 84100; 85025; 85027; 85610; 85730; 87040; 87086; 93005; 97116-GP; 97161-GP; 99283-25; Q9967

== ENCOUNTER 2020-01-07 12:37 | Emergency (ER) | payer OTHER, MEDICARE ==
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
--- OUTSIDE RECORDS SUMMARY | 2020-01-07 12:49 | XMS ---
:1950 Author Organization [facility] Care Team Providers Name Role Phone Shanae, Patrick Unavailable Unavailable Shanae, Patrick Unavailable Unavailable Shanae, Patrick Unavailable Unavailable Shanae, Patrick Unavailable Unavailable Shanae, Patrick Unavailable Unavailable Shanea, Patrick Unavailable Unavailable Shanae, Patrick Unavailable Unavailable Shanae, Patrick Unavailable Unavailable Shanae, Patrick Unavailable Unavailable Re-disclosure Warning The records that you are about to access may contain information from federally- assisted alcohol or drug abuse programs. If such information is present, then the following federally mandated warning applies: This information has been disclosed to you from records protected by federal confidentiality rules (42 CFR part 2). The federal rules prohibit you from making any further disclosure of this information unless further disclosure is expressly permitted by the written consent of the person to whom it pertains or as otherwise permitted by 42 CFR part 2. A general authorization for the release of medical or other information is NOT sufficient for this purpose. The Federal rules restrict any use of the information to criminally investigate or prosecute any alcohol or drug abuse patient.The records that you are about to access may contain highly sensitive health information, the redisclosure of which is protected by Article 27-F of the [facility] Public Health law. If you continue you may haveaccess to information: Regarding HIV / AIDS; Provided by facilities licensed or operated by the [facility] Office of Mental Health; or Provided by the [facility] Office for People With Developmental Disabilities. If such information is present, then the following [facility] mandated warning applies: This information has been disclosed to you from confidential records which are protected by state law. State law prohibits you from making any further disclosure of this information without the specific written consent of the person to whom it pertains, or as otherwise permitted by law. Any unauthorized further disclosure in violation of state law may result in a fine or alf sentence or both. A general authorization for the release of medical or other information is NOT sufficient authorization for further disclosure. Encounters Encounter Providers Location Date Indications Data Source(s ) Attender: Patrick 09/19/2019 [facility] ( [facility] 12:00:00 AM EDT [facility]) Office Medications Medication Brand Start Product Dose Route Administrative Pharmacy [facility] Indications Reaction Description Data Name Date Form Instructions Instructions Source(s) Rosuvastati ROSUVA 10/11/ TABLET 90 complet ROSU VASTATIN [facility] (St n calcium 5 STATIN 2019 ed [facility] Oral :23485 12:00: Medical, Tablet 4 00 AM PC) ROSUVASTATI EDT [id number] Imipramine IMIPRA 10/10/ TABLET 30 complet IMIPR AMINE [facility] (St Hydrochlori MINE:8 2019 ed [facility] de 10 MG 08999 12:00: Medical, Oral Tablet 00 AM PC) IMIPRAMINE: EDT [id number] Insurance Providers Payer name Policy type Policy ID Covered Covered constitution party's Policy P [place] / Coverage constitution party ID relationship to Fernandez Inf ormation type fernandez [facility] [id number] SP [id number] CARE OPTIONS MEDICARE [id number] SP [id number] [place] [id number] PART B DOWNSTATE AARP MEDICARE [id number] 1 [id number] SUPP[place] [id number] 1 [id number] PART B [facility] [id number] SP [id number] CARE OPTIONS [facility] [id number] SP [id number] CARE OPTIONS Surgeries/Procedures Procedure Description Date Indications Data Source(s) Documentation of current 09/19/2019 [facility] ([facility] medications (procedure) 12:00:00 AM EDT TOBIN Garcia) Documentation of current 09/19/2019 [facility] ([facility] medications (procedure) 12:00:00 AM EDT TOBIN Garcia) Documentation of current 09/19/2019 [facility] ([facility] medications (procedure) 12:00:00 AM EDT Tylor gage ) Documentation of current 09/19/2019 [facility] ([facility] medications (procedure) 12:00:00 AM EDT edical, PC) Documentation of current 09/19/2019 [facility] ([facility] medications (procedure) 12:00:00 AM EDT edical, ) Documentation of current 09/19/2019 [facility] ([facility] medications (procedure) 12:00:00 AM EDT [facility], PC) Documentation of current 09/19/2019 [facility] ([facility]procedure) [facility] OFF[facility] OUTPATIENT VISIT 15 09/19/2019 M [facility] ([facility] MINUTES 12:00:00 AM [facility], ) Influenza virus vaccine, 01/12/2019 [facility] ([facility] split virus, when 12:00:00 AM [facility] , ) administered to individuals 3 years of age and older, for intramuscular use (flulaval) Administration of 01/12/2019 [facility] ([facility] influenza virus vaccine 12:00:00 AM EDT [facility], ) Results ID Date Data Source [id number] 10/10/2019 06:03:00 PM EDT [facility] Name Value Range Interpretation Description Data Sup porting Code Source(s) Document(s ) 2018 Novel [facility] Coronavirus RNA Interpretation Unspecified Specimen Qualitative [place] Probe Detection This lab was ordered by [facility] and reported by [facility]. Procedure Social History Code Duration Value Status Description Data Source(s ) Smoking 10/12/2019 Tobacco Status: completed Tobacco Status: MEDG EN (St 12:00:00 AM Former smoker Former smoker [facility], EDT Smoking History: Smoking History: PC ) 15-20 Years Daily 15-20 Years Daily Smokin Pack Smokin Pack Smoking Stop Date: Smoking Stop Date : stopped 15 yrs ago stopped 15 yrs ag o Marital Status Marital Status Household Household Members 3 Lives Members 3 Lives Independently Yes Independently Yes Number of Children Number of Childre n 2 Occupation 2 Occupation retired Alcohol Use retired Alcohol Use None None Smoking 10/12/2019 Unknown if ever completed Unknown if ever MEDG EN (St 12:00:00 AM smoked smoked [facility], EDT ) Vital Signs ID Date Data Source UNK Name Value Range Interpretation Code Description Data Source(s) Heart rate 90 /min 90 /min [facility] ([facility], ) Respiratory rate 15 /min 15 /min [facility] ( [facility], ) Body mass index -1 kg/m2 -1 kg/m2 [facility] ([facility] (BMI) [Ratio] [facility], ) Diastolic blood 84 mm[Hg] 84 mm[Hg] [facility] ([facility], ) Systolic blood 126 mm[Hg] 126 mm[Hg] [facility] [place], )
[2020-01-07 12:56] VITALS: BP 151/89; PULSE 83; TEMP 97.9; BMI 25.2
== END 2020-01-07 14:07 | disposition home or self-care (01) ==
LOC: FER 12:37
DX: M25.562 Pain in left knee (principal)
CPT/HCPCS: 73562-TC-LT-FY; 99283-25

== ENCOUNTER 2023-05-30 23:53 | Inpatient (IN) | payer MEDICARE, OTHER ==
[2023-05-31] MEDS ORDERED: ACETAMINOPHEN INJECTION 100 ML IVPB ONE (00:25)
[2023-05-31] MEDS ORDERED: ONDANSETRON 4 MG/2 ML VIAL ONE ×2 (00:25→04:41)
[2023-05-31] MEDS ORDERED: FAMOTIDINE 20 MG/50 ML IVPB 20 MG/50 ML MG IVPB ONE (00:57)
[2023-05-31] MEDS: ACETAMINOPHEN 1000 MG/100 ML BAG IVPB ONE (00:59)
[2023-05-31] MEDS: FAMOTIDINE 20 MG/50 ML IVPB 20 MG/50 ML MG IVPB ONE (01:00)
[2023-05-31] MEDS: ONDANSETRON 4 MG/2 ML VIAL IVPB ONE ×2 (01:00→04:48)
[2023-05-31] MEDS: SODIUM CHLORIDE 500 ML IV STA ×2 (01:00→04:47)
[2023-05-31 01:59] LABS: EPI CELLS 36 /uL (0-25.1); HYALINE CASTS 7 /uL (0-3.1); URINE APPEARANCE Error; URINE BACTERIA 103 /uL (0-1359); URINE BILIRUBIN NEGATIVE (NEGATIVE); URINE COLOR DK YELLOW; URINE GLUCOSE (UA) NEGATIVE (NEGATIVE); URINE KETONE 1+ (NEGATIVE); URINE LEUK ESTERASE NEGATIVE (NEGATIVE); URINE NITRITE NEGATIVE (NEGATIVE); URINE PROTEIN 1+ (NEGATIVE); URINE WBC 37 /uL (0-25.8)
[2023-05-31 02:03] LABS: BASO % 0.1 % (0-2.0); EOS % 0.3 % (0-4.5); HEMOGLOBIN 15.3 GM/dL (10.7-15.3); LYMPH % 18.1 % (8-40); MCH 29.9 pg (25.7-33.7); MCHC 33.2 g/dl (32.0-36.0); MEAN CELL VOLUME 89.9 fl (80-96); MEAN PLT VOLUME 8.4 fl (7.5-11.1); MONO % 8.3 % (3.8-10.2); NEUT % 73.2 % (42.8-82.8); PLATELET COUNT 530 10^3/uL (134-434); RBC 5.12 M/mm3 (3.60-5.2); RDW 13.9 % (11.6-15.6); WHITE BLOOD COUNT 14.9 K/mm3 (4.0-10.0)
[2023-05-31 02:12] LABS: POTASSIUM 4.6 mmol/L (3.5-5.1)
[2023-05-31 02:14] LABS: ALBUMIN 4.2 g/dl (3.4-5.0); BLOOD UREA NITROGEN 36.4 mg/dL (7-18); CALCIUM 9.7 mg/dL (8.5-10.1)
[2023-05-31 02:17] LABS: CREATININE 0.8 mg/dL (0.55-1.3)
[2023-05-31 02:19] LABS: BILIRUBIN,TOTAL 1.1 mg/dL (0.2-1); TOT PROT 8.4 g/dl (6.4-8.2)
[2023-05-31] MEDS ORDERED: ACETAMINOPHEN 1000 MG/100 ML BAG IVPB PRN (05:46)
[2023-05-31] MEDS: INSULIN ASPART SLIDING SCALE (NOVOLOG) 1 VIAL SQ SCH (06:31)
[2023-05-31 08:38] LABS: URINE RBC 41 /uL (0-23.9)
[2023-05-31] MEDS: SODIUM CHLORIDE 1,000 ML IV SCH (08:42)
[2023-05-31 09:02] LABS: HEMATOCRIT 42.5 % (32.4-45.2); HEMOGLOBIN 14.3 G/dL (10.7-15.3); MCH 30.4 pg (25.7-33.7); MCHC 33.5 g/dl (32.0-36.0); MEAN CELL VOLUME 90.7 fl (80-96); MEAN PLT VOLUME 8.1 fl (7.5-11.1); PLATELET COUNT 477.2 10^3/uL (134-434); RBC 4.69 10^6/uL (3.60-5.2); RDW 14.4 % (11.6-15.6); WHITE BLOOD COUNT 12.4 10^3/uL (4.0-10.8)
[2023-05-31 09:07] LABS: ACTIVATED PTT 28.8 SECONDS (25.2-36.5)
[2023-05-31 09:24] LABS: INR 1.03 (0.83-1.09)
[2023-05-31 10:42] LABS: BLOOD UREA NITROGEN 31.5 mg/dL (7-18); CALCIUM 9.1 mg/dL (8.5-10.1)
[2023-05-31 10:45] LABS: CREATININE 0.5 mg/dL (0.55-1.3)
[2023-05-31 10:46] LABS: PHOSPHOROUS 3.8 mg/dL (2.5-4.9)
[2023-05-31] MEDS: METOPROLOL TARTRATE 5 MG/5 ML VIAL IVPUSH ONE (20:03)
[2023-06-01] MEDS: METOPROLOL TARTRATE 5 MG/5 ML VIAL IVPUSH ONE (08:46)
[2023-06-01 08:50] LABS: ALBUMIN 4.6 g/dl (3.4-5.0); BILIRUBIN,TOTAL 1.2 mg/dl (0.2-1); CALCIUM 9.7 mg/dl (8.5-10.1); CREATININE 0.6 mg/dl (0.6-1.3); TOT PROT 7.6 g/dl (6.4-8.2)
[2023-06-01 10:13] LABS: BASO % 0.3 % (0-2.0); EOS % 0.2 % (0-4.5); HEMATOCRIT 45.2 % (32.4-45.2); HEMOGLOBIN 14.9 GM/dL (10.7-15.3); LYMPH % 22.8 % (8-40); MCH 29.8 pg (25.7-33.7); MEAN CELL VOLUME 90.4 fl (80-96); MEAN PLT VOLUME 8.8 fl (7.5-11.1); MONO % 10.5 % (3.8-10.2); NEUT % 66.2 % (42.8-82.8); PLATELET COUNT 520 10^3/uL (134-434); RDW 13.8 % (11.6-15.6)
[2023-06-01] MEDS: AMINO ACIDS 4.25%/D5W 1,000 ML IV SCH (10:17)
[2023-06-01] MEDS: SODIUM CHLORIDE 1,000 ML IV SCH (10:17)
[2023-06-01] MEDS: METOPROLOL TARTRATE 5 MG/5 ML VIAL IVPUSH PRN (12:36)
[2023-06-02] MEDS: INSULIN ASPART SLIDING SCALE (NOVOLOG) 1 VIAL SQ SCH ×3 (06:03→16:47)
[2023-06-02] MEDS ORDERED: METOPROLOL TARTRATE 5 MG/5 ML VIAL IVPUSH PRN (09:39)
[2023-06-02 10:02] LABS: BASO % 0.2 % (0-2.0); EOS % 0.1 % (0-4.5); HEMATOCRIT 39.2 % (32.4-45.2); HEMOGLOBIN 13.5 GM/dL (10.7-15.3); LYMPH % 19.5 % (8-40); MCH 30.6 pg (25.7-33.7); MCHC 34.4 g/dl (32.0-36.0); MONO % 11.3 % (3.8-10.2); NEUT % 68.9 % (42.8-82.8); PLATELET COUNT 452 10^3/uL (134-434); RBC 4.41 M/mm3 (3.60-5.2); RDW 13.8 % (11.6-15.6); WHITE BLOOD COUNT 15.1 K/mm3 (4.0-10.0)
[2023-06-02 10:30] LABS: POTASSIUM 3.4 mmol/L (3.5-5.1)
[2023-06-02] MEDS: SODIUM CHLORIDE 1,000 ML IV SCH ×2 (10:35→16:31)
[2023-06-02] MEDS: AMINO ACIDS 4.25%/D5W 1,000 ML IV SCH (10:36)
[2023-06-02 11:11] LABS: CALCIUM 8.9 mg/dL (8.5-10.1)
[2023-06-02 11:12] LABS: BLOOD UREA NITROGEN 20.9 mg/dL (7-18)
[2023-06-02 11:13] LABS: BILIRUBIN,TOTAL 1.3 mg/dL (0.2-1); CREATININE 0.4 mg/dL (0.55-1.3); TOT PROT 6.9 g/dl (6.4-8.2)
[2023-06-02 11:15] LABS: ALBUMIN 3.1 g/dl (3.4-5.0)
[2023-06-02] MEDS ORDERED: BUPIVACAINE HCL/PF 0.25% (2.5MG/ML) 10 ML VIAL ONE (11:53)
[2023-06-02] MEDS ORDERED: DEXAMETHASONE SOD PHOSPHATE 4 MG/1 ML VIAL ONE (12:23)
[2023-06-02] MEDS ORDERED: LIDOCAINE HCL/PF 2% SDV 5ML VIAL ONE (12:23)
[2023-06-02] MEDS ORDERED: MIDAZOLAM HCL 2 MG/2 ML SINGLE DOSE VIAL ONE (12:24)
[2023-06-02] MEDS ORDERED: PROPOFOL 20 ML ONE (12:24)
[2023-06-02] MEDS ORDERED: ROCURONIUM BROMIDE 50 MG/5 ML SYRINGE ONE (12:35)
[2023-06-02] MEDS ORDERED: SUCCINYLCHOLINE CHLORIDE 200 MG/10 ML SYRINGE ONE (12:37)
[2023-06-02] MEDS: VANCOMYCIN 1,000 MG VIAL (RESTRICTED TO ID ONLY) IVPB ONE (13:18)
[2023-06-02] MEDS ORDERED: cefOXitin SODIUM 2 GM VIAL (RESTRICTED TO ID) IVPB ONE (13:26)
[2023-06-02] MEDS: BUPIVACAINE HCL/PF 0.25% (2.5MG/ML) 10 ML VIAL IJ ONE (13:29)
[2023-06-02] MEDS ORDERED: GENTAMICIN SO4 80 MG/2 ML VIAL ONE (13:35)
[2023-06-02] MEDS: GENTAMICIN SO4 80 MG/2 ML VIAL IVPB ONE (13:36)
[2023-06-02] MEDS ORDERED: SUGAMMADEX SODIUM 200 MG/2 ML VIAL ONE (14:18)
[2023-06-02] MEDS ORDERED: ONDANSETRON 4 MG/2 ML VIAL IVPUSH PRN (14:50)
[2023-06-02] MEDS ORDERED: LACTATED RINGERS SOLUTION 1,000 ML IV SCH (15:00)
[2023-06-02] MEDS: ACETAMINOPHEN 500 MG TABLET (FP) PO SCH (15:11)
[2023-06-02] MEDS ORDERED: oxyCODONE HCL 5 MG TABLET PO PRN ×2 (15:27→15:28)
[2023-06-02] MEDS: ACETAMINOPHEN INJECTION 100 ML IVPB ONE (15:41)
[2023-06-02] MEDS: KCL 10 MEQ IVPB 10 MEQ/100 ML INFUS.BAG IVPB SCH (16:32)
[2023-06-02] MEDS: METOPROLOL TARTRATE 25 MG TABLET (FP) PO SCH (22:03)
[2023-06-03 08:12] LABS: BASO % 0.2 % (0-2.0); HEMATOCRIT 33.5 % (32.4-45.2); HEMOGLOBIN 10.9 GM/dL (10.7-15.3); LYMPH % 19.2 % (8-40); MCH 29.3 pg (25.7-33.7); MCHC 32.6 g/dl (32.0-36.0); MEAN CELL VOLUME 89.9 fl (80-96); MEAN PLT VOLUME 8.6 fl (7.5-11.1); MONO % 7.7 % (3.8-10.2); NEUT % 72.9 % (42.8-82.8); PLATELET COUNT 362 10^3/uL (134-434); RBC 3.72 M/mm3 (3.60-5.2); RDW 13.7 % (11.6-15.6)
[2023-06-03 08:40] LABS: POTASSIUM 3.8 mmol/L (3.5-5.1)
[2023-06-03 08:51] LABS: CALCIUM 8.2 mg/dL (8.5-10.1)
[2023-06-03 08:52] LABS: ALBUMIN 2.6 g/dl (3.4-5.0); BLOOD UREA NITROGEN 12.1 mg/dL (7-18)
[2023-06-03 08:55] LABS: CREATININE 0.3 mg/dL (0.55-1.3)
[2023-06-03 08:56] LABS: PHOSPHOROUS 2.4 mg/dL (2.5-4.9); TOT PROT 5.6 g/dl (6.4-8.2)
[2023-06-03 08:57] LABS: BILIRUBIN,TOTAL 0.8 mg/dL (0.2-1)
[2023-06-03] MEDS: NAPH,MB-DB/K PH,MBDB POWDER PACKET PO SCH (16:38)
[2023-06-03] MEDS: ACETAMINOPHEN 1000 MG/100 ML BAG IVPB ONE (19:17)
[2023-06-03] MEDS: KCL 10 MEQ IVPB 10 MEQ/100 ML INFUS.BAG IVPB SCH (19:18)
[2023-06-03] MEDS: POTASSIUM PHOSPHATE 30 MM in SODIUM CHLORIDE 500 ML IVPB ONE (19:18)
[2023-06-03 23:25] VITALS: BMI 25.7
[2023-06-04 06:02] VITALS: BP 119/55; PULSE 74; TEMP 97.8
[2023-06-04 11:16] VITALS: RESP 18
== END 2023-06-04 11:28 | disposition home or self-care (01) | DRG 336 ==
LOC: FER 23:53 → FM/S 05-31 06:36 → J6S 06-02 02:00 → J4S 06-02 11:10
PROVIDERS: ATTEND Internal Medicine
PROC: 0DN Gastrointestinal System, Release (ICD-10-PCS; principal; 2023-06-02 12:30)
DX: K56.51 Intestinal adhesions [bands], with partial obstruction (principal); I42.9 Cardiomyopathy, unspecified; K46.9 Unspecified abdominal hernia without obstruction or gangrene; I10 Essential (primary) hypertension; E11.9 Type 2 diabetes mellitus without complications; E03.9 Hypothyroidism, unspecified; C73 Malignant neoplasm of thyroid gland; E78.5 Hyperlipidemia, unspecified; F41.9 Anxiety disorder, unspecified; E86.0 Dehydration; E87.6 Hypokalemia; E78.00 Pure hypercholesterolemia, unspecified; R80.9 Proteinuria, unspecified
CPT/HCPCS: 36415; 71045-TC-FY; 74018-TC-FY; 74019-TC-FY; 74177-TC; 80048; 80053; 81003; 82248; 82272; 82962; 83690; 83735; 84100; 84439; 84443; 85025; 85027; 85610; 85730; 86850; 86900; 86901; 93005; 94760; 99285-25; J0131; Q9967